=== PATIENT | female | born 1980 | race Caucasian/White ===

== ENCOUNTER 2019-07-02 18:08 | Emergency (ER) | payer SELFPAY ==
--- NOTE | 2019-07-02 18:52 | RAD REPORT ---
EXAM DESCRIPTION: RAD - Chest Single View - 07/02/2019 6:47 pm CLINICAL HISTORY: COUGH Chest pain. COMPARISON: No comparisons FINDINGS: Portable technique limits examination quality. The lungs are grossly clear. The heart is normal in size. No displaced fractures. IMPRESSION: No acute intrathoracic process suspected.
[2019-07-02] MEDS ORDERED: METOPROLOL TAR 25 MG TAB ONE (19:02)
[2019-07-02] MEDS ORDERED: NA CHLORIDE 0.9% 1,000 ML ONE (19:02)
[2019-07-02] MEDS ORDERED: ASPIRIN 81 MG CHEWABLE TABLET ONE (19:02)
[2019-07-02 19:07] LABS: Absolute Lymphocytes (CBC) 1.5 K/uL (0.7-4.9); Basophils % 0.6 % (0-1.3); Hematocrit 38.5 % (36.0-45.0); Lymphocytes % 20.6 % (15.3-44.8); MPV 11.9 fL (7.6-11.3); RBC Red Blood Cell Count 4.14 M/uL (3.86-4.86)
[2019-07-02 19:10] LABS: Protime INR 1.06
[2019-07-02 19:17] LABS: Urine Blood TRACE (NEG); Urine Glucose NEGATIVE (NEG); Urine Protein NEGATIVE (NEG); Urine Specific Gravity 1.015 (1.005-1.030)
[2019-07-02 19:27] LABS: ALT/SGPT 18 U/L (12-78); AST/SGOT 18 U/L (15-37); Albumin 4.3 g/dL (3.4-5.0); Alkaline Phosphatase 42 U/L (45-117); BUN Blood Urea Nitrogen 9 mg/dL (7-18); Bicarbonate 26 mmol/L (21-32); Bilirubin Direct 0.1 mg/dL (0-0.2); Bilirubin Total 0.3 mg/dL (0.2-1.0); Glucose Level 78 mg/dL (74-106); Magnesium 2.1 mg/dL (1.8-2.4); NT PRO-BNP 254 pg/mL (<125); Potassium 3.5 mmol/L (3.5-5.1); Protein, Total 7.2 g/dL (6.4-8.2); Sodium Level 144 mmol/L (136-145); Thyroid Stimulating Hormone 0.752 uIU/mL (0.360-3.740); Troponin (Emerg Dept Use Only) 0.03 ng/mL (0.0-0.045)
[2019-07-02 19:28] LABS: Barbiturates NEGATIVE (NEGATIVE); Benzodiazepines NEGATIVE (NEGATIVE); Cocaine NEGATIVE (NEGATIVE); METHAMPHETAM NEGATIVE (NEGATIVE); Methadone NEGATIVE (NEGATIVE); Opiates NEGATIVE (NEGATIVE); Phencyclidine NEGATIVE (NEGATIVE); THC Cannibis POSITIVE (NEGATIVE)
--- NOTE | 2019-07-02 19:43 | ER ---
Nurse's Notes [facility] Name: Sabina Cole Age: 39 yrs Sex: Female : 1980 Arrival Date: 07/02/2019 Time: 18:17 Bed 3 Private MD: Diagnosis: Chest pain, unspecified;Supraventricular tachycardia;Tobacco abuse counseling;Tobacco use;Abuse of non-psychoactive substances-pot Presentation: 07/01 18:17 Chief complaint: EMS states: CHEST PAIN, SVT ON MONITOR. Coronavirus screen: Proceed bp with normal triage. Ebola Screen: No symptoms or risks identified at this time. Initial Sepsis Screen: Does the patient meet any 2 criteria? HR > 90 bpm. No. Patient's initial sepsis screen is negative. Does the patient have a suspected source of infection? No. Patient's initial sepsis screen is negative. Risk Assessment: Do you want to hurt yourself or someone else? Patient reports no desire to harm self or others. Onset of symptoms is unknown. Care prior to arrival: IV initiated. 20 GA, in the right hand, Glucose check: 108. 18:17 Method Of Arrival: EMS: [facility] bp 18:17 Acuity: HELENA 2 bp Triage Assessment: 18:21 General: Appears in no apparent distress. comfortable, slender, Behavior is bp cooperative, appropriate for age, anxious. Pain: Denies pain. EENT: No deficits noted. Neuro: No deficits noted. Cardiovascular: Rhythm is sinus tachycardia. Respiratory: No deficits noted. GI: No signs and/or symptoms were reported involving the gastrointestinal system. : No signs and/or symptoms were reported regarding the genitourinary system. Derm: No deficits noted. Musculoskeletal: No deficits noted. 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 - Social history:: Smoking status: unknown. - Family history:: not pertinent. Screenin:22 Abuse screen: Denies threats or abuse. Denies injuries from another. Nutritional bp screening: No deficits noted. Tuberculosis screening: No symptoms or risk factors identified. Fall Risk None identified. Assessment: 18:22 General: SEE TRIAGE NOTE. bp 19:00 Reassessment: SR ON MONITOR, IVF INFUSING. bp 19:10 General: Appears in no apparent distress. comfortable, Behavior is calm, cooperative, rr5 appropriate for age, awaiting for review. Pain: Denies pain. Neuro: Level of Consciousness is awake, alert, obeys commands, Oriented to person, place, time, situation, Appropriate for age. Cardiovascular: Capillary refill < 3 seconds Patient's skin is warm and dry. Rhythm is sinus rhythm. Respiratory: Airway is patent Respiratory effort is even, unlabored, Respiratory pattern is regular, symmetrical. GI: No signs and/or symptoms were reported involving the gastrointestinal system. : No signs and/or symptoms were reported regarding the genitourinary system. EENT: No signs and/or symptoms were reported regarding the EENT system. Derm: Skin is intact, is healthy with good turgor, Skin temperature is warm. Musculoskeletal: Circulation, motion, and sensation intact. Capillary refill < 3 seconds. 19:45 Reassessment: Patient appears in no apparent distress at this time. Patient is alert, rr5 oriented x 3, equal unlabored respirations, skin warm/dry/pink. call made to patients "Joshua" [phone], [phone] to arrange transport going home. 20:50 Reassessment: Patient appears in no apparent distress at this time. call made to [address] [facility] and [facility] by public relations counselor requesting for the ECG strip. they could not track the number of the EMS staff who attended,because they used the personal number. 21:14 Reassessment: Patient appears in no apparent distress at this time. Patient is alert, rr5 oriented x 3, equal unlabored respirations, skin warm/dry/pink. discharge instruction given and explained without complaints made. assisted going to her transport. Vital Signs: 18:17 BP 121 / 85; Pulse 113; Resp 20; Temp 97.3; Pulse Ox 98% ; Weight 49.9 kg; Height 5 ft. bp 2 in. (157.48 cm); 19:00 BP 111 / 82; Pulse 96; Resp 17; Pulse Ox 100% ; bp 20:00 BP 115 / 70; Pulse 90; Resp 16; Temp 97.8; Pulse Ox 99% ; rr5 21:00 BP 119 / 62; Pulse 93; Resp 18; Pulse Ox 98% ; rr5 18:17 Body Mass Index 20.12 (49.90 kg, 157.48 cm) bp ED Course: 18:17 Patient arrived in ED. bp 18:17 Candido France MD is Attending Physician. amy 18:19 Triage completed. bp 18:21 Arm band placed on. bp 18:22 Patient has correct armband on for positive identification. Bed in low position. Call bp light in reach. Side rails up X2. railroad construction director on. Pulse ox on. NIBP on. 18:23 Maintain EMS IV. Dressing intact. Good blood return noted. Site clean \\T\\ dry. Gauge \\T\\ bp site: 20 GAUGE R HAND. 18:24 Alfonso More, ANDREA is Primary Nurse. bp 18:30 Urine collected: clean catch specimen, clear. dh3 18:40 Initial lab(s) drawn, by nc, sent to lab. Inserted saline lock: 22 gauge in right 3 antecubital area, using aseptic technique. Blood collected. 18:47 EKG done, by ED staff, reviewed by Candido France MD. 3 18:48 XRAY Chest (1 view) In Process Unspecified. EDMS 19:43 Octavio Miller MD is Referral Physician. amy 21:15 No provider procedures requiring assistance completed. IV discontinued, intact, rr5 bleeding controlled, No redness/swelling at site. Pressure dressing applied. 21:15 Patient maintains SpO2 saturation greater than 95% on room air. rr5 Administered Medications: 18:30 Drug: Lopressor 25 mg Route: PO; bp 19:30 Follow up: Response: No adverse reaction rr5 18:30 Drug: NS 0.9% 1000 ml Route: IV; Rate: 1 bolus; Site: right antecubital; bp 19:30 Follow up: Response: No adverse reaction; IV Status: Completed infusion; IV Intake: rr5 1000ml 19:00 Drug: Aspirin 162 mg Route: PO; bp 20:00 Follow up: Response: No adverse reaction rr5 Intake: 19:30 IV: 1000ml; Total: 1000ml. rr5 Outcome: 19:43 Discharge ordered by . amy 21:15 Discharged to home ambulatory. rr5 21:15 Condition: stable 21:15 Discharge instructions given to patient, Instructed on discharge instructions, follow up and referral plans. medication usage, Demonstrated understanding of instructions, follow-up care, medications, Prescriptions given X 1. 21:16 Patient left the ED. rr5 Signatures: Dispatcher [employer] EDRI Candido France MD MD cha Herrera, Jania [facility] Alfonso More, RN RN Cornelius Beach RN RN rr5
--- NOTE | 2019-07-02 19:43 | EDPHYS ---
Physician Documentation [facility] Name: Sabina Cole Age: 39 yrs Sex: Female : 1980 Arrival Date: 07/02/2019 Time: 18:17 Bed 3 Private MD: ED Physician Candido France HPI: 07/01 18:37 This 39 yrs old Female presents to ER via EMS with complaints of Chest Pain. amy 18:37 The patient or guardian reports chest pain that is located primarily in the anterior [facility] chest wall. The pain does not radiate. 18:38 The patient presents with a history of heart racing. Context: The symptoms occur with [facility] exercise. Onset: The symptoms/episode began/occurred just prior to arrival. Duration: The patient or guardian reports a single episode, that is now resolved. Modifying factors: The symptoms are aggravated by nothing. The symptoms are alleviated by nothing. Associated signs and symptoms: Pertinent positives: chest pain, lightheadedness, SOB. 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 - Social history:: Smoking status: unknown. - Family history:: not pertinent. ROS: 18:38 Constitutional: Negative for fever, chills, and weight loss, Eyes: Negative for injury, amy pain, redness, and discharge, ENT: Negative for injury, pain, and discharge, Neck: Negative for injury, pain, and swelling, Respiratory: Negative for shortness of breath, cough, wheezing, and pleuritic chest pain, Abdomen/GI: Negative for abdominal pain, nausea, vomiting, diarrhea, and constipation, Back: Negative for injury and pain, : Negative for injury, bleeding, discharge, and swelling, MS/Extremity: Negative for injury and deformity, Skin: Negative for injury, rash, and discoloration, Neuro: Negative for headache, weakness, numbness, tingling, and seizure, Psych: Negative for depression, anxiety, suicide ideation, homicidal ideation, and hallucinations, Allergy/Immunology: Negative for hives, rash, and allergies, Endocrine: Negative for neck swelling, polydipsia, polyuria, polyphagia, and marked weight changes, Hematologic/Lymphatic: Negative for swollen nodes, abnormal bleeding, and unusual bruising. 18:38 Cardiovascular: Positive for chest pain, palpitations. Exam: 18:38 Constitutional: This is a well developed, well nourished patient who is awake, alert, amy and in no acute distress. Head/Face: Normocephalic, atraumatic. Eyes: Pupils equal round and reactive to light, extra-ocular motions intact. Lids and lashes normal. Conjunctiva and sclera are non-icteric and not injected. Cornea within normal limits. Periorbital areas with no swelling, redness, or edema. ENT: Nares patent. No nasal discharge, no septal abnormalities noted. Tympanic membranes are normal and external auditory canals are clear. Oropharynx with no redness, swelling, or masses, exudates, or evidence of obstruction, uvula midline. Mucous membranes moist. Neck: Trachea midline, no thyromegaly or masses palpated, and no cervical lymphadenopathy. Supple, full range of motion without nuchal rigidity, or vertebral point tenderness. No Meningismus. Chest/axilla: Normal chest wall appearance and motion. Nontender with no deformity. No lesions are appreciated. Respiratory: Lungs have equal breath sounds bilaterally, clear to auscultation and percussion. No rales, rhonchi or wheezes noted. No increased work of breathing, no retractions or nasal flaring. Abdomen/GI: Soft, non-tender, with normal bowel sounds. No distension or tympany. No guarding or rebound. No evidence of tenderness throughout. Back: No spinal tenderness. No costovertebral tenderness. Full range of motion. Skin: Warm, dry with normal turgor. Normal color with no rashes, no lesions, and no evidence of cellulitis. MS/ Extremity: Pulses equal, no cyanosis. Neurovascular intact. Full, normal range of motion. Neuro: Awake and alert, GCS 15, oriented to person, place, time, and situation. Cranial nerves II-XII grossly intact. Motor strength 5/5 in all extremities. Sensory grossly intact. Cerebellar exam normal. Normal gait. Psych: Awake, alert, with orientation to person, place and time. Behavior, mood, and affect are within normal limits. 18:38 Cardiovascular: Rate: tachycardic, Rhythm: regular, Pulses: Pulses are 4+ in bilateral radial, brachial, femoral, popliteal, posterior tibial and and dorsalis pedis arteries.. Heart sounds: normal, Edema: is not appreciated, JVD: is not appreciated. 18:38 Musculoskeletal/extremity: DVT Exam: No signs of deep vein thrombosis. no pain, no swelling, no tenderness, negative Homans' sign noted on exam, no appreciated bluish discoloration, no erythema, no increased warmth. 18:53 ECG was reviewed by the Attending Physician. amy Vital Signs: 18:17 BP 121 / 85; Pulse 113; Resp 20; Temp 97.3; Pulse Ox 98% ; Weight 49.9 kg; Height 5 ft. bp 2 in. (157.48 cm); 19:00 BP 111 / 82; Pulse 96; Resp 17; Pulse Ox 100% ; bp 20:00 BP 115 / 70; Pulse 90; Resp 16; Temp 97.8; Pulse Ox 99% ; rr5 21:00 BP 119 / 62; Pulse 93; Resp 18; Pulse Ox 98% ; rr5 18:17 Body Mass Index 20.12 (49.90 kg, 157.48 cm) bp MDM: 18:19 Patient medically screened. amy 18:39 Differential diagnosis: abnormal EKG, anxiety, coronary artery disease congestive heart amy failure arrythmia, dehydration, hiatal hernia, mitral valve prolapse, pericarditis, pleurisy, pneumothorax, stable angina. Data reviewed: vital signs, nurses notes, EMS record, lab test result(s), EKG, radiologic studies, plain films. 19:05 HEART Score: History: Slightly Suspicious (0), ECG: Normal (0), Age: < or = 45 years amy (0), Risk Factors: No Risk Factors Known (0). The patient's deep vein thrombosis risk score was calculated as follows: Total Score: 0. This patient was found to be at low risk for a deep vein thrombosis by using the Well's assessment criteria. The patient's pulmonary embolism risk score was calculated as follows: Total Score: 0-2 points. This patient was found to be at low risk for a pulmonary embolism by using the Well's assessment criteria. ANKITA Risk Score: TOTAL SCORE = 0. Data interpreted: monitoring coordinator: rate is 113 beats/min, Pulse oximetry: on room air is 98 %. Test interpretation: by ED physician or midlevel provider: ECG, plain radiologic studies. ED course: pt stable, will stop vaping and no caffeine and no energy drinks. ED course: will follow up dr miller. 07/01 18:18 Order name: Basic Metabolic Panel; Complete Time: 19:37 [facility] 07/01 18:18 Order name: CBC with Diff; Complete Time: 19:42 [facility] 07/01 18:18 Order name: LFT's; Complete Time: 19:37 [facility] 07/01 18:18 Order name: Magnesium; Complete Time: 19:37 [facility] 07/01 18:18 Order name: NT PRO-BNP; Complete Time: 19:37 [facility] 07/01 18:18 Order name: Troponin (emerg Dept Use Only); Complete Time: 19:37 [facility] 07/01 18:18 Order name: TSH; Complete Time: 19:37 [facility] 07/01 18:18 Order name: Acetaminophen; Complete Time: 19:37 [facility] 07/01 18:18 Order name: ETOH Level; Complete Time: 19:37 [facility] 07/01 18:18 Order name: PT-INR; Complete Time: 19:41 [facility] 07/01 18:18 Order name: Ptt, Activated; Complete Time: 19:41 [facility] 07/01 18:19 Order name: Salicylate; Complete Time: 19:37 [facility] 07/01 18:19 Order name: Urine Drug Screen; Complete Time: 19:37 [facility] 07/01 18:54 Order name: Urine Dipstick--Ancillary (enter results); Complete Time: 19:19 [facility] 07/01 18:18 Order name: XRAY Chest (1 view); Complete Time: 19:05 [facility] 07/01 18:18 Order name: EKG; Complete Time: 18:20 [facility] 07/01 18:18 Order name: Cardiac monitoring; Complete Time: 18:20 [facility] 07/01 18:18 Order name: EKG - Nurse/Tech; Complete Time: 18:20 [facility] 07/01 18:18 Order name: IV Saline Lock; Complete Time: 18:20 [facility] 07/01 18:18 Order name: Labs collected and sent; Complete Time: 18:56 [facility] 07/01 18:18 Order name: O2 Per Protocol; Complete Time: 18:20 [facility] 07/01 18:18 Order name: O2 Sat Monitoring; Complete Time: 18:20 [facility] 07/01 18:19 Order name: Urine Dipstick-Ancillary (obtain specimen); Complete Time: 18:56 amy EC:53 Rate is 104 beats/min. Rhythm is regular. QRS Two Dot is Normal. CT interval is normal. [facility] QRS interval is normal. QT interval is normal. No Q waves. T waves are Normal. No ST changes noted. Clinical impression: NSR w/ Non-specific ST/T Changes and Sinus tachycardia. Interpreted by me. Reviewed by me. Administered Medications: 18:30 Drug: Lopressor 25 mg Route: PO; bp 19:30 Follow up: Response: No adverse reaction rr5 18:30 Drug: NS 0.9% 1000 ml Route: IV; Rate: 1 bolus; Site: right antecubital; bp 19:30 Follow up: Response: No adverse reaction; IV Status: Completed infusion; IV Intake: rr5 1000ml 19:00 Drug: Aspirin 162 mg Route: PO; bp 20:00 Follow up: Response: No adverse reaction rr5 Disposition: 07/02/19 19:43 Discharged to Home. Impression: Chest pain, unspecified, Supraventricular tachycardia, Tobacco abuse counseling, Tobacco use, Abuse of non-psychoactive substances - pot. - Condition is Stable. - Discharge Instructions: Nonspecific Chest Pain, Substance Use Disorder, Steps to Quit Smoking, Smoking Hazards, Paroxysmal Supraventricular Tachycardia, Nonspecific Chest Pain, [id number], Steps to Quit Smoking, [id number], Aspirin and Your Heart. - Prescriptions for Toprol XL 25 mg Oral Tablet - take 1 tablet by ORAL route once daily; 20 tablet. - Medication Reconciliation Form, Thank You Letter, Antibiotic Education, Prescription Opioid Use form. - Follow up: Private Physician; When: 2 - 3 days; Reason: Recheck today's complaints, Continuance of care, Re-evaluation by your physician. Follow up: Octavio Miller; When: 2 - 3 days; Reason: Recheck today's complaints, Re-evaluation by your physician. - Problem is new. - Symptoms have improved. Signatures: Dispatcher [employer] Candido Ayon MD MD cha Peltier, Brian, RN RN bp Cornelius Cash, RN RN rr5 Corrections: (The following items were deleted from the chart) 21:16 19:43 07/02/2019 19:43 Discharged to Home. Impression: Chest pain, unspecified; rr5 Supraventricular tachycardia; Tobacco abuse counseling; Tobacco use; Abuse of non-psychoactive substances - pot. Condition is Stable. Discharge Instructions: Nonspecific Chest Pain, Paroxysmal Supraventricular Tachycardia, Nonspecific Chest Pain, [id number], Aspirin and Your Heart, Steps to Quit Smoking, Smoking Hazards, Steps to Quit Smoking, [id number]. Prescriptions for Toprol XL 25 mg Oral Tablet - take 1 tablet by ORAL route once daily; 20 tablet. and Forms are Medication Reconciliation Form, Thank You Letter, Antibiotic Education, Prescription Opioid Use. Follow up: Private Physician; When: 2 - 3 days; Reason: Recheck today's complaints, Continuance of care, Re-evaluation by your physician. Follow up: Octavio Miller; When: 2 - 3 days; Reason: Recheck today's complaints, Re-evaluation by your physician. Problem is new. Symptoms have improved. amy
[2019-07-02] MEDS ORDERED: ACETAMINOPHEN 650MG/RECT SUPP PR ONE (19:58)
[2019-07-02 22:48] VITALS: TEMP 97.3
[2019-07-02 22:53] VITALS: BP 111/82; O2SAT 100
--- NOTE | 2019-07-04 13:12 | EKG ---
Test Date: 2019-07-02 Test Time: 18:47:15 Night Time Nanny: D MEASUREMENT RESULTS: Intervals: Rate: 104 RI: 120 QRSD: 76 QT: 322 QTc: 423 [place]: P: 81 RI: 120 QRS: 76 T: 59 INTERPRETIVE STATEMENTS: Sinus tachycardia Otherwise normal ECG No previous ECG available for comparison Electronically Signed On 07-04-19 13:11:50 CDT by Octavio Miller
== END 2019-07-02 21:16 | disposition home or self-care (01) ==
LOC: ER 18:08
DX: I47.1 Supraventricular tachycardia (principal); F12.10 Cannabis abuse, uncomplicated; Z72.0 Tobacco use; Z71.6 Tobacco abuse counseling; Z88.5 Allergy status to narcotic agent
CPT/HCPCS: 36415; 71045; 80048; 80076; 80307; 80320; 80329; 81003; 83735; 83880; 84443; 84484; 85025; 85610; 85730; 93005; 96360; 99285; J7030

== ENCOUNTER 2019-12-27 12:36 | Emergency (ER) | payer OTHER ==
[2019-12-27] MEDS ORDERED: PROMETHAZINE 25 MG TABLET ONE (15:13)
[2019-12-27] MEDS ORDERED: TRAMADOL HCL 50 MG TAB ONE (15:13)
--- NOTE | 2019-12-27 15:45 | ER ---
Nurse's Notes [facility] Name: Sabina Cole Age: 39 yrs Sex: Female : 1980 Arrival Date: 12/27/2019 Time: 12:38 Bed 20 Private MD: Diagnosis: Nondisplaced fracture of lateral malleolus of left fibula Presentation: 12/26 13:03 Chief complaint: Patient states: Tripped and fell last night. Pain on L ankle. Lac on L ca1 ankle. Bleeding controlled. Coronavirus screen: Client denies travel out of the [place] in the last 14 days. At this time, the client does not indicate any symptoms associated with coronavirus-19. Client reports previous positive COVID test result. Date of collection: July 2019. Ebola Screen: Patient negative for fever greater than or equal to 101.5 degrees Fahrenheit, and additional compatible Ebola Virus Disease symptoms Patient denies exposure to infectious person. Patient denies travel to an Ebola-affected area in the 21 days before illness onset. No symptoms or risks identified at this time. Initial Sepsis Screen: Does the patient meet any 2 criteria? No. Patient's initial sepsis screen is negative. Does the patient have a suspected source of infection? No. Patient's initial sepsis screen is negative. Risk Assessment: Do you want to hurt yourself or someone else? Patient reports no desire to harm self or others. Onset of symptoms was December 27, 2019. 13:03 Method Of Arrival: Wheelchair ca1 13:03 Acuity: HELENA 4 ca1 Triage Assessment: 13:05 General: Appears in no apparent distress. uncomfortable, Behavior is cooperative, bp appropriate for age, anxious. Pain: Complains of pain in left lateral ankle. EENT: No deficits noted. Neuro: No deficits noted. Cardiovascular: No deficits noted. Respiratory: No deficits noted. GI: No signs and/or symptoms were reported involving the gastrointestinal system. : No signs and/or symptoms were reported regarding the genitourinary system. Derm: No deficits noted. Musculoskeletal: Reports pain in left lateral ankle. 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 - Social history:: Smoking status: Patient reports the use of cigarette tobacco products, smokes one-half pack cigarettes per day. Screenin:00 Abuse screen: Denies threats or abuse. Denies injuries from another. Nutritional bp screening: No deficits noted. Tuberculosis screening: No symptoms or risk factors identified. Fall Risk None identified. Assessment: 13:05 General: SEE TRIAGE NOTE. bp 15:01 Reassessment: Patient is alert, oriented x 3, equal unlabored respirations, skin aa5 warm/dry/pink. Awaiting x-ray. 15:33 Reassessment: Patient appears in no apparent distress at this time. Patient and/or bp family updated on plan of care and expected duration. Pain level reassessed. XRAY COMPLETE. 16:13 Reassessment: PT D/C HOME VIA CRUTCHES WITH FAMILY, DX WITH NONDISPLACED 5TH METATARSAL bp FX. Vital Signs: 13:03 BP 121 / 79; Pulse 109; Resp 18 S; Temp 99.1(TE); Pulse Ox 99% on R/A; Weight 49.9 kg ca1 (R); Height 5 ft. 2 in. (157.48 cm) (R); Pain 7/10; 15:00 BP 127 / 65; Pulse 81; Resp 10; Temp 99; Pulse Ox 99% ; bp 16:13 BP 130 / 69; Pulse 97; Resp 18; Temp 98.9; Pulse Ox 99% ; bp 13:03 Body Mass Index 20.12 (49.90 kg, 157.48 cm) ca1 ED Course: 12:38 Patient arrived in ED. ag5 13:06 Triage completed. ca1 13:07 Arm band placed on right wrist. ca1 14:42 David Sullivan NP is PHCP. pm1 14:42 Candido France MD is Attending Physician. pm1 15:00 Patient has correct armband on for positive identification. Bed in low position. Call bp light in reach. Side rails up X2. 15:03 Alfonso More, ANDREA is Primary Nurse. bp 15:12 Ankle Left 3 View XRAY In Process Unspecified. EDMS 15:45 LEFT LOWER LEG SPLINT IN PLACE AND INSPECTED BY PROVIDER. bp 16:19 No provider procedures requiring assistance completed. Patient did not have IV access bp during this emergency room visit. 16:27 Orthoglass splint: Posterior short lleg splint applied on left leg. stirrup splint bp applied on left leg. Administered Medications: 15:01 Drug: Phenergan 25 mg Route: PO; aa5 15:35 Follow up: Response: No adverse reaction bp 15:01 Drug: traMADol 50 mg Route: PO; aa5 15:35 Follow up: Response: Pain is decreased bp Outcome: 15:45 Discharge ordered by MD. pm1 16:24 Discharged to home with crutches, with family. bp 16:24 Condition: stable 16:24 Discharge instructions given to patient, Instructed on discharge instructions, follow up and referral plans. medication usage, crutch walking, Demonstrated understanding of instructions, follow-up care, medications, crutch walking, splint care, Prescriptions given X 2. 16:28 Patient left the ED. bp Signatures: Dispatcher [employer] EDMS Candi Way, RN RN aa5 David Sullivan, REAGAN LINE CONTROLLER pm1 Alfonso More RN RN bp Flor Car RN RN [facility] Ashly Singh [facility]
--- NOTE | 2019-12-27 15:45 | EDPHYS ---
Physician Documentation [facility] Name: Sabina Cole Age: 39 yrs Sex: Female : 1980 Arrival Date: 12/27/2019 Time: 12:38 Bed 20 Private MD: ANGELICA Physician Candido France HPI: 12/26 14:51 This 39 yrs old Female presents to ER via Wheelchair with complaints of Ankle pm1 Injury. 14:51 The patient presents with pain, that is acute, swelling. The complaints affect the left pm1 ankle. Onset: The symptoms/episode began/occurred last night, at 21:00. Context: The problem was sustained at home, resulted from the patient tripping, on the sliding door railing, The mechanism of injury involved inversion of the affected ankle. The patient can partially bear weight on the affected extremity. the patient is able to ambulate, with moderate difficulty. Associated signs and symptoms: Pertinent positives: swelling, Pertinent negatives: calf tenderness, fever, numbness, tingling. Associated signs and symptoms: Pertinent positives: Abrasion to lateral aspect of left ankle. Modifying factors: The symptoms are alleviated by elevation of extremity, the symptoms are aggravated by weight bearing, movement. Severity of symptoms: in the emergency department the symptoms are unchanged. The patient has not experienced similar symptoms in the past. The patient has not recently seen a physician. 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 - Social history:: Smoking status: Patient reports the use of cigarette tobacco products, smokes one-half pack cigarettes per day. ROS: 14:51 Constitutional: Negative for fever, chills, and weight loss, Neck: Negative for injury, pm1 pain, and swelling, Cardiovascular: Negative for chest pain, palpitations, and edema, Respiratory: Negative for shortness of breath, cough, wheezing, and pleuritic chest pain, Neuro: Negative for headache, weakness, numbness, tingling, and seizure. 14:51 MS/extremity: Positive for pain, swelling, tenderness, of the left lateral ankle. 14:51 Skin: Positive for abrasion(s), of the left lateral ankle. Exam: 14:51 Constitutional: This is a well developed, well nourished patient who is awake, alert, pm1 and in no acute distress. Head/Face: Normocephalic, atraumatic. Neck: Trachea midline, no thyromegaly or masses palpated, and no cervical lymphadenopathy. Supple, full range of motion without nuchal rigidity, or vertebral point tenderness. No Meningismus. 14:51 Cardiovascular: Exam negative for acute changes, Rate: normal, Rhythm: regular, Pulses: no pulse deficits are appreciated, Pulses are 2+ in right dorsalis pedis artery and left dorsalis pedis artery. 14:51 Respiratory: Exam negative for acute changes, respiratory distress, shortness of breath. 14:51 Musculoskeletal/extremity: Extremities: grossly normal except: noted in the left lateral ankle: swelling, tenderness, small superficial abrasion present, There is no evidence of deformity, ROM: full active range of motion, left ankle, full passive range of motion, in the left ankle, the left foot Sensation intact. Vital Signs: 13:03 BP 121 / 79; Pulse 109; Resp 18 S; Temp 99.1(TE); Pulse Ox 99% on R/A; Weight 49.9 kg ca1 (R); Height 5 ft. 2 in. (157.48 cm) (R); Pain 7/10; 15:00 BP 127 / 65; Pulse 81; Resp 10; Temp 99; Pulse Ox 99% ; bp 16:13 BP 130 / 69; Pulse 97; Resp 18; Temp 98.9; Pulse Ox 99% ; bp 13:03 Body Mass Index 20.12 (49.90 kg, 157.48 cm) ca1 Procedures: 16:07 Splinting: Splint applied to left ankle using Orthoglass splint, applied by tech. pm1 Examined by me, post splint application: neurovascular intact, 2+ distal pulses palpable, brisk capillary refill noted, Patient tolerated well. MDM: 14:45 Patient medically screened. [facility] 14:51 Data reviewed: vital signs. Data interpreted: Pulse oximetry: on room air is 99 %. pm1 Interpretation: normal. 15:33 Counseling: I had a detailed discussion with the patient and/or guardian regarding: the pm1 historical points, exam findings, and any diagnostic results supporting the discharge/admit diagnosis, radiology results, the need for outpatient follow up, for definitive care, a orthopedic surgeon, to return to the emergency department if symptoms worsen or persist or if there are any questions or concerns that arise at home. 12/26 13:08 Order name: Ankle Left 3 View XRAY ca1 12/26 15:34 Order name: Crutches; Complete Time: 16:08 pm1 12/26 15:34 Order name: Splint - Ankle: Posterior; Complete Time: 16:08 pm1 12/26 15:34 Order name: Splint - Ankle: Orthoglass: Stirrup; Complete Time: 16:08 pm1 Administered Medications: 15:01 Drug: Phenergan 25 mg Route: PO; aa5 15:35 Follow up: Response: No adverse reaction bp 15:01 Drug: traMADol 50 mg Route: PO; aa5 15:35 Follow up: Response: Pain is decreased bp Disposition: 12/27 07:59 Co-signature as Attending Physician, Candido France MD I agree with the assessment and amy plan of care. Disposition: 12/27/19 15:45 Discharged to Home. Impression: Nondisplaced fracture of lateral malleolus of left fibula. - Condition is Stable. - Discharge Instructions: Ankle Fracture, Cast or Splint Care, Adult, Crutch Use. - Prescriptions for Tramadol 50 mg Oral Tablet - take 1 tablet by ORAL route every 8 hours as needed; 12 tablet. promethazine 25 mg Oral Tablet - take 1 tablet by ORAL route every 6 hours As needed; 20 tablet. - Medication Reconciliation Form, Thank You Letter, Antibiotic Education, Prescription Opioid Use form. - Follow up: Emergency Department; When: As needed; Reason: Worsening of condition. Follow up: Private Physician; When: 2 - 3 days; Reason: Recheck today's complaints, Continuance of care, Re-evaluation by your physician. - Problem is new. - Symptoms have improved. Signatures: Dispatcher [employer] Candido Ayon MD MD cha Calderon, Audri RN RN aa5 David Sullivan, SORTER PRICER SORTER PRICER pm1 Alfonso More RN RN bp Flor Car RN RN ca1 Corrections: (The following items were deleted from the chart) 12/26 16:28 15:45 12/27/2019 15:45 Discharged to Home. Impression: Nondisplaced fracture of lateral bp malleolus of left fibula. Condition is Stable. Forms are Medication Reconciliation Form, Thank You Letter, Antibiotic Education, Prescription Opioid Use. Follow up: Emergency Department; When: As needed; Reason: Worsening of condition. Follow up: Private Physician; When: 2 - 3 days; Reason: Recheck today's complaints, Continuance of care, Re-evaluation by your physician. Problem is new. Symptoms have improved. pm1
--- NOTE | 2019-12-27 16:49 | RAD REPORT ---
EXAM DESCRIPTION: RAD - Ankle Left 3 View - 12/27/2019 3:12 pm CLINICAL HISTORY: fall;Pain COMPARISON: No comparisons FINDINGS: Subtle cortical disruption is seen of the distal fibula near the tibiotalar joint line. No distraction or angulation. Distal tibia is intact. Ankle mortise is normal. No joint effusion seen. No joint space narrowing. No significant soft tissue swelling. IMPRESSION: Distal left fibula fracture with no distraction or angulation.
[2019-12-27 16:51] VITALS: O2SAT 99
[2019-12-27 17:01] VITALS: BP 130/69; TEMP 98.9
== END 2019-12-27 16:28 | disposition home or self-care (01) ==
LOC: ER 12:36
PROC: 2W3MX1Z Immobilization of Left Lower Extremity using Splint (ICD-10-PCS; principal; 2019-12-27)
DX: S82.65XA Nondisplaced fracture of lateral malleolus of left fibula, initial encounter for closed fracture (principal); F17.210 Nicotine dependence, cigarettes, uncomplicated; J44.9 Chronic obstructive pulmonary disease, unspecified; F31.9 Bipolar disorder, unspecified; W01.0XXA Fall on same level from slipping, tripping and stumbling without subsequent striking against object, initial encounter; Y93.9 Activity, unspecified; Y92.009 Unspecified place in unspecified non-institutional (private) residence as the place of occurrence of the external cause; Z88.5 Allergy status to narcotic agent
CPT/HCPCS: 73610; 99284; 29505; Q0169

== ENCOUNTER 2019-12-31 15:18 | Emergency (ER) | payer OTHER ==
--- NOTE | 2019-12-31 15:35 | ER ---
Nurse's Notes [facility] Name: Sabina Cole Age: 39 yrs Sex: Female : 1980 Arrival Date: 12/31/2019 Time: 15:18 Bed Waiting Private MD: Diagnosis: Presentation: 12/30 15:29 Chief complaint: pt at registration desk and refuses to be seen in triage, pt has her iw right foot up on registration desk and is talking loudly, states "the doctor only gave me 12 tranadols and I've been taking it as prescribed and I need my prescription refilled, I had to drive here for an hour just for a refill" i advised pt that we will not refill her tramadol without first being seen by a provider. Pt states "y'all just want my money, no way am i signing in again!" pt yelling and grabbing her belongings aggressively, pt states "I hope you break your ankle, I hope you get COVID!" I advised pt that she can either leave on her own or I can have security walk her out. Pt ambulated out of ER with crutches and plastic bag with her medications. ED Course: 15:18 Patient arrived in ED. ag5 Administered Medications: No medications were administered Outcome: 15:34 Patient left the ED. iw Signatures: Carmen Ellison, RN RN Ashly De Oliveira ag5
== END 2019-12-31 15:34 | disposition left against medical advice (07) ==
LOC: ER 15:18
DX: Z53.21 Procedure and treatment not carried out due to patient leaving prior to being seen by health care provider (principal)
CPT/HCPCS: 99281

== ENCOUNTER → 2020-06-07 | Day surgery (SDC) | payer OTHER ==
--- NOTE | 2020-06-07 13:25 | RAD REPORT ---
EXAM DESCRIPTION: US - Guided FNA Non Breast - 06/07/2020 11:06 am CLINICAL HISTORY: Thyroid nodule ICD R22.1 COMPARISON: May 2020 ultrasound TECHNIQUE: Risks, benefits and alternatives of procedure explained to the patient and informed conse nt obtained. Skin and subcutaneous tissues anesthetized with lidocaine. Under sonographic guidance, five 25 gauge needle passes were obtained into the dominant nodule within the right lobe of the thyroid gland. Specimens given to pathology. Patient experienced no immediate complication IMPRESSION: Fine-needle aspiration of a dominant nodule within right lobe of thyroid gland
== END ==
LOC: FNA 10:09
PROVIDERS: ATTEND Family Medicine
PROC: 0GBH3ZX Excision of Right Thyroid Gland Lobe, Percutaneous Approach, Diagnostic (ICD-10-PCS; principal; 2020-06-07)
PROC: BG44ZZZ Ultrasonography of Thyroid Gland (ICD-10-PCS; 2020-06-07)
DX: E04.1 Nontoxic single thyroid nodule (principal); R22.1 Localized swelling, mass and lump, neck
CPT/HCPCS: 88162

== ENCOUNTER 2020-06-22 20:44 | Emergency (ER) | payer OTHER ==
--- OUTSIDE RECORDS SUMMARY | 2020-06-22 20:47 | XMS REPORT | Continuity of Care Document ---
:1980 Author Organization [facility] t Address [address] [place] [address] [address] [place] [address] Care Team Providers Name Role Phone Unavailable Unavailable Unavailable Problems This patient has no known problems. Allergies, Adverse Reactions, Alerts This patient has no known allergies or adverse reactions. Medications This patient has no known medications. Procedures This patient has no known procedures. Encounters Start End Encounter Admission Attending Care Care Encounter Source Date/Time Date/Time Type Type Clinicians Facility Department ID 2020-06-20 2020-06-20 Outpatient [facility] [id number] [facility] 00[facility]00 [facility] 2020-06-15 2020-06-15 Outpatient [facility] [id number] [facility] 2020-06-15 2020-06-15 Outpatient [facility] [id number] [facility] 2020-06-09 2020-06-09 Outpatient [facility] [id number] [facility] 2020-06-08 2020-06-08 Outpatient [facility] [id number] [facility] 2020-05-23 2020-05-23 [facility] [id number] [facility] 2020-05-12 2020-05-12 [facility] [id number] [facility] 2020-05-10 2020-05-10 [facility] [id number] [facility] 2020-03-09 2020-03-09 Out[facility] [id number] [facility] 2020-02-10 2020-02-10 [facility] [id number] [facility] 2020-01-24 2020-01-24 [facility] [id number] [facility] 2020-01-11 2020-01-11 [facility] [id number] [facility] 2020-01-11 2020-01-11 Out[facility] [id number] [facility] 2020-01-10 2020-01-10 Out[facility] [id number] [facility] 2020-01-10 2020-01-10 [facility] [id number] [facility] 2020-01-10 2020-01-10 Out[facility] [id number] [facility] 2020-01-05 2020-01-05 Outpatient [facility] [id number] [facility] Clinics Results This patient has no known results.
--- NOTE | 2020-06-22 22:11 | ER ---
Nurse's Notes [facility] Name: Sabina Cole Age: 40 yrs Sex: Female : 1980 Arrival Date: 06/22/2020 Time: 20:47 Bed 30 Private MD: Diagnosis: Otalgia, bilateral Presentation: 06/22 21:03 Chief complaint: Patient states: I was surfing one week ago and I got water in my ear. jb4 I went to the on Friday of last week with an ear infection and was put on amox/k clav and then a week later was swapped to a Z-pack since it was getting worse. Coronavirus screen: Client denies travel out of the [place] in the last 14 days. At this time, the client does not indicate any symptoms associated with coronavirus-19. Ebola Screen: No symptoms or risks identified at this time. Initial Sepsis Screen: Does the patient meet any 2 criteria? No. Patient's initial sepsis screen is negative. Does the patient have a suspected source of infection? No. Patient's initial sepsis screen is negative. Risk Assessment: Do you want to hurt yourself or someone else? Patient reports no desire to harm self or others. Onset of symptoms was June 15, 2020. Transition of care: patient was not received from another setting of care. 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 - Social history:: Smoking status: Patient reports the use of cigarette tobacco products, smokes one-half pack cigarettes per day, Patient/guardian denies using alcohol, street drugs. Screenin:45 Abuse screen: Denies threats or abuse. Nutritional screening: No deficits noted. jb4 Tuberculosis screening: No symptoms or risk factors identified. Fall Risk None identified. Assessment: 21:45 General: Appears in no apparent distress. uncomfortable, Behavior is calm, cooperative, jb4 appropriate for age. Pain: Complains of pain in right ear and left ear Pain does not radiate. Pain currently is 2 out of 10 on a pain scale. Neuro: Level of Consciousness is awake, alert, obeys commands, Oriented to person, place, time, situation. Cardiovascular: Patient's skin is warm and dry. Respiratory: Airway is patent Respiratory effort is even, unlabored, Respiratory pattern is regular, symmetrical. GI: No signs and/or symptoms were reported involving the gastrointestinal system. : No signs and/or symptoms were reported regarding the genitourinary system. EENT: Ear canal clear on left ear and right ear. Derm: Skin is intact, Skin is pink, warm \T\ dry. Musculoskeletal: Circulation, motion, and sensation intact. Range of motion: intact in all extremities. Vital Signs: 21:03 BP 129 / 82; Pulse 80; Resp 16; Temp 97.4; Pulse Ox 100% on R/A; Weight 49.9 kg (R); jb4 Height 5 ft. 2 in. (157.48 cm); Pain 2/10; 21:03 Body Mass Index 20.12 (49.90 kg, 157.48 cm) jb4 ED Course: 20:47 Patient arrived in ED. bp1 21:06 Triage completed. jb4 21:07 Arm band placed on right wrist. jb4 21:45 Patient has correct armband on for positive identification. Bed in low position. Call jb4 light in reach. Side rails up X 1. 21:46 August Love MD is Attending Physician. tw4 22:11 Angela Su MD is Referral Physician. tw4 22:27 No provider procedures requiring assistance completed. Patient did not have IV access jb4 during this emergency room visit. Administered Medications: 22:23 Drug: Ondansetron 4 mg Route: PO; jb4 22:25 Follow up: Response: Medication administered at discharge. jb4 22:23 Drug: traMADol 50 mg Route: PO; jb4 22:25 Follow up: Response: Medication administered at discharge. jb4 Outcome: 22:10 Discharge ordered by . tw4 22:27 Discharged to home ambulatory. jb4 22:27 Condition: stable 22:27 Discharge instructions given to patient, Instructed on discharge instructions, follow up and referral plans. medication usage, Demonstrated understanding of instructions, follow-up care, medications, Prescriptions given X 3. 22:28 Patient left the ED. jb4 Signatures: Frankie Hernandez RN RN jb4 August Love MD MD tw4 Aminah Mariano [facility]
--- NOTE | 2020-06-22 22:11 | EDPHYS ---
Physician Documentation [facility] Name: Sabina Cole Age: 40 yrs Sex: Female : 1980 Arrival Date: 06/22/2020 Time: 20:47 Bed 30 Private MD: ED Physician August Love HPI: 06/23 06:46 This 40 yrs old Female presents to ER via Ambulatory with complaints of Ear tw4 Pain, Nausea. 06:46 This 40 yrs old Female presents to ER via Ambulatory with complaints of Ear tw4 Pain, Nausea. 06:46 The patient presents with pain. The complaints affect the right ear and left ear. The tw4 complaints affect the . Onset: The symptoms/episode began/occurred today. Modifying factors: The symptoms are alleviated by nothing, the symptoms are aggravated by nothing. Severity of symptoms: At their worst the symptoms were moderate in the emergency department the symptoms are unchanged. The patient has not experienced similar symptoms in the past. 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 - Social history:: Smoking status: Patient reports the use of cigarette tobacco products, smokes one-half pack cigarettes per day, Patient/guardian denies using alcohol, street drugs. ROS: 06/23 06:46 Constitutional: Negative for fever, chills, and weight loss, Eyes: Negative for injury, tw4 pain, redness, and discharge. Cardiovascular: Negative for chest pain, palpitations, and edema, Respiratory: Negative for shortness of breath, cough, wheezing, and pleuritic chest pain, Abdomen/GI: Negative for abdominal pain, nausea, vomiting, diarrhea, and constipation, Back: Negative for injury and pain, MS/Extremity: Negative for injury and deformity, Skin: Negative for injury, rash, and discoloration, Neuro: Negative for headache, weakness, numbness, tingling, and seizure. ENT: Positive for ear pain. Exam: 06:46 Constitutional: This is a well developed, well nourished patient who is awake, alert, tw4 and in no acute distress. Head/Face: Normocephalic, atraumatic. ENT: Nares patent. No nasal discharge, no septal abnormalities noted. Tympanic membranes are normal and external auditory canals are clear. Oropharynx with no redness, swelling, or masses, exudates, or evidence of obstruction, uvula midline. Mucous membranes moist. Chest/axilla: Normal chest wall appearance and motion. Nontender with no deformity. No lesions are appreciated. Cardiovascular: Regular rate and rhythm with a normal S1 and S2. No gallops, murmurs, or rubs. Normal PMI, no JVD. No pulse deficits. Vital Signs: 06/22 21:03 BP 129 / 82; Pulse 80; Resp 16; Temp 97.4; Pulse Ox 100% on R/A; Weight 49.9 kg (R); jb4 Height 5 ft. 2 in. (157.48 cm); Pain 2/10; 21:03 Body Mass Index 20.12 (49.90 kg, 157.48 cm) jb4 MDM: 21:46 Patient medically screened. tw4 06/23 06:46 Differential diagnosis: otitis media, otitis externa. Data reviewed: vital signs, tw4 nurses notes. Data interpreted: Pulse oximetry:. Counseling: I had a detailed discussion with the patient and/or guardian regarding: the historical points, exam findings, and any diagnostic results supporting the discharge/admit diagnosis. Special discussion: I discussed with the patient/guardian in detail that at this point there is no indication for admission to the hospital. It is understood, however, that if the symptoms persist or worsen the patient needs to return immediately for re-evaluation. Administered Medications: 06/22 22:23 Drug: Ondansetron 4 mg Route: PO; jb4 22:25 Follow up: Response: Medication administered at discharge. jb4 22:23 Drug: traMADol 50 mg Route: PO; jb4 22:25 Follow up: Response: Medication administered at discharge. jb4 Disposition: 06/22/20 22:10 Discharged to Home. Impression: Otalgia, bilateral. - Condition is Stable. - Discharge Instructions: Earache, Adult. - Prescriptions for Sowmya- D 12 Hour 60-120 mg Oral Tablet Sustained Release 12 hr - take 1 tablet by ORAL route every 12 hours As needed; 30 tablet. Zofran 4 mg Oral Tablet - take 1 tablet by ORAL route every 12 hours As needed; 6 tablet. Tramadol 50 mg Oral Tablet - take 1 tablet by ORAL route every 8 hours as needed; 12 tablet. - Medication Reconciliation Form, Thank You Letter, Antibiotic Education, Prescription Opioid Use form. - Follow up: Private Physician; When: Upon discharge from the Emergency Department; Reason: Recheck today's complaints, Continuance of care, Re-evaluation by your physician. Follow up: Angela Su MD; When: Upon discharge from the Emergency Department; Reason: Recheck today's complaints, Continuance of care, Re-evaluation by your physician. - Problem is new. - Symptoms have improved. Signatures: Frankie Hernandez RN RN jb4 August Love MD MD tw4 Corrections: (The following items were deleted from the chart) 22:11 22:10 06/22/2020 22:10 Discharged to Home. Impression: Otalgia, bilateral. Condition is tw4 Stable. Forms are Medication Reconciliation Form, Thank You Letter, Antibiotic Education, Prescription Opioid Use. Follow up: Private Physician; When: Upon discharge from the Emergency Department; Reason: Recheck today's complaints, Continuance of care, Re-evaluation by your physician. Problem is new. Symptoms have improved. tw4 22:28 22:11 06/22/2020 22:10 Discharged to Home. Impression: Otalgia, bilateral. Condition is jb4 Stable. Discharge Instructions: Earache, Adult. Forms are Medication Reconciliation Form, Thank You Letter, Antibiotic Education, Prescription Opioid Use. Follow up: Private Physician; When: Upon discharge from the Emergency Department; Reason: Recheck today's complaints, Continuance of care, Re-evaluation by your physician. Follow up: Angela Su; When: Upon discharge from the Emergency Department; Reason: Recheck today's complaints, Continuance of care, Re-evaluation by your physician. Problem is new. Symptoms have improved. tw4
[2020-06-22] MEDS ORDERED: TRAMADOL HCL 50 MG TAB ONE (22:39)
[2020-06-22] MEDS ORDERED: ONDANSETRON 4 MG (ODT) TAB ONE (22:39)
[2020-06-22 22:41] VITALS: BP 129/82; TEMP 97.4; O2SAT 100
== END 2020-06-22 22:28 | disposition home or self-care (01) ==
LOC: ER 20:44
DX: H92.03 Otalgia, bilateral (principal); F17.210 Nicotine dependence, cigarettes, uncomplicated; F31.9 Bipolar disorder, unspecified; J44.9 Chronic obstructive pulmonary disease, unspecified; I10 Essential (primary) hypertension
CPT/HCPCS: 99283

== ENCOUNTER 2020-11-13 14:27 | Emergency (ER) | payer OTHER ==
--- OUTSIDE RECORDS SUMMARY | 2020-11-13 14:32 | XMS REPORT | Continuity of Care Document ---
:1980 Author Organization [facility] t Address [address] [place] [address] Care Team Providers Name Role Phone HEMATPOUR Attending Clinician Unavailable Hematpour Attending Clinician VISIT, [facility] Attending Clinician Unavailable Ann ASHBY Attending Clinician Unavailable Hematpour Admitting Clinician Payers Payer Name Policy Type Policy Number Effective Date Expiration Date S ourbg [employer] [id number] 2020 00:00:00 Problems Condition Condition Condition Status Onset Resolution Last Treating Co mments Source Name Details Category Date Date Treatment Clinician Date CCL/ EPS Diagnosis Active 2020-08-23 M emoria SVT 08-07 07:36:00 l ABLATION CCL/ EPS 00:00: Herm chari W/ HELENA SVT 00 ABLATION W/ HELENA Active 08/07/2020 [facility] Allergies, Adverse Reactions, Alerts Allergy Allergy Status Severity Reaction(s) Onset Inactive Treating Comm ents Source Name Type Date Date Clinician codeine codeine Active Mumtaz Alfred Social History Smoking Status Start Date Stop Date Source Social History 2020-08-18 11:27:01 [facility] Medications Ordered Filled Start Stop Current Ordering Indication Dosage Frequency Signature Comments Components Source Medication Medication Date Date Medication? Clinician (SIG) Name Name Colchicine Yes 0.6 mg = 1 M emoria 0.6 MG Oral 6-19 tab, PO, l Tablet 15:34: Daily, # Tima 00 14 tab, 0 Refill(s) naproxen Yes 500 mg = 1 Mem oria 500 mg oral 6-19 tab, PO, l enteric 15:34: BID, X 30 [place] nn coated 00 day, # 60 delayed-rel tab, 0 ease tablet Refill(s) lidocaine No Notes: Memori a 2% 6-19 (Same as: l 15:06: Xylocaine) [place] 00 lidocaine No 40 mg, Memori a 2% 6-19 Route: l 14:43: INTRALESIO [place] 00 N, Drug Form: INJ, Dosing Weight 48.636, kg, ONCE, Start date: 08/19/20 9:43:00 CDT, Stop date: 08/19/20 9:43:00 CDT Solu-Medrol No 40 mg, Shai xiomy 6-19 Route: l 14:43: INTRALESIO Tima 00 N, Drug form: INJ, ONCE, Dosing Weight 48.636, kg, Start date: 08/19/20 9:43:00 CDT, Stop date: 08/19/20 9:43:00 CDT metoprolol No Notes: Memor ia extended 6-19 (Same as: l release 14:00: Toprol XL) Do Not Crush Colchicine No Notes: Memor ia 0.6 MG Oral 6-19 Hazardous l Tablet 14:00: Drug Group Blanquita nn 00 3:Reproduc tive risk Hazardous Drug -- Refer to safe handling procedure PPE Matrix Potassium No Notes: Memori a Chloride 6-19 (Same as: l 10:43: KCL) 10 Tima 00 mEq/100ml product recommende d for peripheral line administra tion. Infuse no faster than 10 mEq/hr if given peripheral ly. sodium No Notes: Memoria phosphate 6-19 Infuse l 10:43: over 4 Tima 00 hour. Do not infuse phosphorou s concurrent ly in the same line as TPN or IVF that contains calcium. For double lumen central lines, phosphorou s may be infused in a separate lumen from TPN. potassium No Notes: Memori a phosphate 6-19 (Same as: l 10:43: K [place] 00 Phosphate) Infuse over 4 hour. Do not infuse phosphorou s concurrent ly in the same line as TPN or IVF that contains calcium. For double lumen central lines, phosphorou s may be infused in a separate lumen from TPN. potassium No Notes: Memori a phosphate-s -19 (Same as: l odium 10:43: Phos-NaK) Tima phosphate 00 Each 1.5 250 mg-280 gm pkt has mg-160 mg 250mg oral powder phosphorou for s. Mix reconstitut w/2.5oz ion water and stir. Magnesium No Notes: Memori a Sulfate - WASTE: F/P l 10:43: - Sink; E - Municipal Trash Bin Magnesium No Notes: Memori a Oxide - (Same as: l 10:43: Mag-Ox Tima 400) Magnesium oxide 795mj=244j g elemental magnesium Dose=____m g magnesium oxide (___mg elemental magnesium) Calcium No Notes: Memoria Gluconate - Contains: l 10:43: calcium Tima 00 gluconate 20mg/mL NaCl 0.67% 50mL WASTE: F/P - Sink; E - Municipal Trash Bin calcium No Notes: Memoria carbonate - (Same As: l 500 mg (200 10:43: Tums) Blanquita nn mg 00 Calcium elemental Carbonate calcium) 500 mg = oral tablet 200 mg elemental calcium Dose = mg calcium carbonate ( mg elemental calcium) Saline No Notes: Memoria Flush 0.9% - (Same as: l 02:00: BD Tima Posiflush) Zofran No Notes: Memoria 6-19 (Same as: l 01:29: Zofran) Tima MEDICATION WASTE Product Size: 4 mg Product Wasted: ___ mg ketOROLAC No 4 days. Shai xiomy 15 mg/mL 08-18 l injectable 23:00: [place] solution 00 lamotrigine No Notes: Shai xiomy 100 MG Oral 6-18 (Same l Tablet 22:00: as:LaMICta Blanquita nn 00 l) 50 mg = 1/2 x 100 mg TAB Naloxone No Notes: Memoria 6-18 Same as l 19:19: Narcan Dilaudid No Notes: Memoria 6-18 Same as l 19:18: Dilaudid lidocaine Yes Notes: Memori a 1% 6-18 Preservati l preservativ 19:16: ve free. He rmann e-free 00 (Same as: injectable Xylocaine solution MPF) Dilaudid No Notes: Memoria 6-18 Same as l 18:02: Dilaudid ketOROLAC No 4 days. Shai xiomy 15 mg/mL 6-18 l injectable 17:48: [place] solution 00 Fentanyl No 50 Memoria 6-18 microgram, l 17:15: Route: IV, [place] 00 ONCE, Dosing Weight 48.636, kg, Start date: 08/18/20 12:15:00 CDT, Stop date: 08/18/20 12:15:00 CDT Versed No Route: IV, Memor ia 6-18 ONCE, l 17:14: Dosing Weight 48.636, kg, Start date: 08/18/20 12:14:00 CDT, Stop date: 08/18/20 12:14:00 CDT NS (Bolus) No 1,000 mL, Me moria IV 6-18 1,000 l 16:27: ml/hr, Infuse Over: 1 hr, Route: IV, ONCE, Priority: STAT, Dosing Weight 48.636 kg, Start date: 08/18/20 11:27:00 CDT, Stop date: 08/18/20 11:27:00 CDT protamine No Route: IV, Me moria (ANES) 6-18 Drug form: l 15:21: INJ, ONCE, Tima 00 Stop date: 08/18/20 10:21:00 CDT Saline No Notes: Memoria Flush 0.9% 6-18 (Same as: l 15:05: BD T[place] 00 Posiflush) Labetalol No 10 mg, 2 Shai xiomy 6-18 mL, Route: l 14:56: IVP, Drug form: INJ, Q5Min, Dosing Weight 48.636, kg, PRN Elevated BP, Start date: 08/18/20 9:56:00 CDT, Duration: 5 doses or times, Stop date: 08/19/20 0:00:00 CDT, 0 Acetaminoph No Notes: Max Memoria en 6-18 acetaminop l 14:56: hen 4000 Tima mg/day (4 gm/day). (Same as: Tylenol Extra Strength) Fentanyl No Notes: Memoria 6-18 (Same as: l 14:56: Sublimaze) Preservat jessica free. Flumazenil No Notes: Memor ia 6-18 (Same as: l 14:56: Romazicon) Naloxone No Notes: Memoria 6-18 Same as l 14:56: Narcan Ondansetron No Notes: Shai xiomy 6-18 (Same as: l 14:56: Zofran) MEDICATION WASTE Product Size: 4 mg Product Wasted: ___ mg propofol No Route: IV, Mem oria (ANES) 6-18 Drug form: l 14:49: INJ, ONCE, Tima Stop date: 08/18/20 9:49:00 CDT fentaNYL No Route: IV, Mem oria (ANES) 6-18 Drug form: l 14:44: INJ, ONCE, Tima Stop date: 08/18/20 9:44:00 CDT Isuprel HCl No Route: IV, Memoria (ANES) 1 mg 6-18 Drug form: l + Sodium 14:41: INJ, Tima Chloride 00 Dosing 0.9% IV Weight (ANES) 250 48.6, kg, mL Start date: 08/18/20 9:41:00 CDT, Stop date: 08/18/20 10:41:00 CDT midazolam No Route: IV, Me moria (ANES) 6-18 Drug form: l 14:34: SOLN, [place] 00 ONCE, Stop date: 08/18/20 9:34:00 CDT propofol No Route: IV, Mem oria (ANES) 10 6-18 Drug form: l mg 14:15: INJ, Start [place] 00 date: 08/18/20 9:15:00 CDT, Stop date: 08/18/20 10:15:00 CDT Sodium No Route: IV, Memor ia Chloride 6-18 Total l 0.9% IV 14:00: Volume: Tima (ANES) 1000 00 1,000, mL Start date: 08/18/20 9:00:00 CDT, Stop date: 08/18/20 10:00:00 CDT normal No 1,000 mL, Memori a saline 0.9% 18 Rate: 100 l IV 1,000 mL 11:20: ml/hr, Herm chari 00 Infuse over: 10 hr, Route: IV, Dosing Weight 48.636 kg, Total Volume: 1,000, Start date: 08/18/20 6:20:00 CDT, Duration: 30 day, Stop date: 09/17/20 6:19:00 CDT, BSA: 1.47 m2, 0 lamotrigine Yes 50 mg = Mem oria 100 MG Oral -18 0.5 tab, l Tablet 11:06: PO, BID, # Blanquita nn 00 60 tab, 0 Refill(s) metoprolol Yes 25 mg, PO, M emoria extended 6-18 Daily, 0 l release 11:06: Refill(s) Blanquita nn 00 Vital Signs Vital Name Observation Time Observation Value Comments Source Respitory Rate 2020-08-19 17:00:00 Memori al T[place] Systolic (mm Hg) 2020-08-19 17:00:00 Shai rial Tima Diastolic (mm Hg) 2020-08-19 17:00:00 Mem orial Tima Temperature Oral (F) 2020-08-19 17:00:00 97.0 F [facility] Tima Respitory Rate 2020-08-19 16:00:00 Memori al [place] Systolic (mm Hg) 2020-08-19 16:00:00 Shai rial [place] Diastolic (mm Hg) 2020-08-19 16:00:00 Mem orial Tima Respitory Rate 2020-08-19 15:00:00 Memori al [place] Systolic (mm Hg) 2020-08-19 15:00:00 Shai rial [place] Diastolic (mm Hg) 2020-08-19 15:00:00 Mem orial [place] Temperature Oral (F) 2020-08-19 13:00:00 97.8 F [facility] T[place] Temperature Oral (F) 2020-08-19 09:00:00 97.7 F [facility] [place] Height 2020-08-18 10:59:00 157.48 cm [facility] [place] Weight 2020-08-18 10:59:00 [facility] [place] BMI Calculated 2020-08-18 10:59:00 Memori al [place] Height 2020-08-15 15:31:00 157.48 cm [facility] [place] Weight 2020-08-15 15:31:00 [facility] [place] BMI Calculated 2020-08-15 15:31:00 Memori al T[place] Procedures This patient has no known procedures. Encounters Start End Encounter Admission Attending Care Care Encounter Source Date/Time Date/Time Type Type Clinicians Facility Department ID 2020-08-21 Outpatient [facility] [id number] 15:[place]:27 [facility] 2020-07-08 Outpatient [facility] [id number] [place] 04:27:04 [facility] 2020-11-01 2020-11-01 [id number] 2020-11-01 2020-11-01 [facility] [id number] [facility] 2020-10-27 2020-10-27 [facility] [id number] [facility] 2020-09-07 2020-09-07 [facility] [id number] [facility] 2020-09-01 2020-09-01 [facility] [id number] [facility] 2020-08-31 2020-08-31 Office DELFINA Downey [id number] 08:39:17 10:28:47 Visit Tae PL[facility] [id number] [facility]INIC [id number] 2020-08-18 2020-08-19 Inpatient nullFlavo [facility] [id number] Memoria 17:48:00 19:45:00 [facility] 00 [facility] 2020-08-18 2020-08-19 Outpatient Hematpour, [facility] [id number] 12:48:00 14:45:00 Khashayar 2020-08-18 2020-08-19 Outpatient Hematpour, [facility] [id number] 12:48:00 14:45:00 ashayar 2020-08-15 2020-08-16 Outpatient nullFlavo [facility] 006 [id number] Memoria 20:45:00 04:59:59 r [facility] 00 [facility] 2020-08-15 2020-08-15 Outpatient VISIT, MG [facility] [id number] 15:45:00 23:59:59 NURSE [facility] 00 2020-08-15 2020-08-15 [place] [id number] Memoria 15:45:00 15:45:00 00 [facility] 2020-08-03 2020-08-03 Office DELFINA Downey [id number] 10:16:50 11:09:22 Visit Tae PLATT [id number] CLINIC [id number] 2020-08-01 2020-08-01 Abstract DELFINA Juarez [facility] [id number] 00:00:00 00:00:00 Audra [facility] [id number] PLAZA 2 [id number] 2020-07-28 2020-07-28 Abstract DELFINA Juarez [facility] [id number] 00:00:00 00:00:00 Audra SE MED [id number] PLAZA 2 [id number] 2020-06-22 2020-06-22 [facility] [id number] [facility] 2020-06-20 2020-06-20 [facility] [id number] [facility] 2020-06-15 2020-06-15 [facility] [id number] [facility] 2020-06-15 2020-06-15 [facility] [id number] [facility] 2020-06-09 2020-06-09 [facility] [id number] [facility] 2020-06-08 2020-06-08 [facility] [id number] [facility] 2020-05-23 2020-05-23 [facility] [id number] [facility] 2020-05-12 2020-05-12 Out[facility] [id number] [facility] 2020-05-10 2020-05-10 [facility] [id number] [facility] 2020-03-09 2020-03-09 Out[facility] [id number] [facility] 2020-02-10 2020-02-10 Out[facility] [id number] [facility] 2020-01-24 2020-01-24 [facility] [id number] [facility] 2020-01-11 2020-01-11 Out[facility] [id number] [facility] 2020-01-11 2020-01-11 Out[facility] [id number] [facility] 2020-01-10 2020-01-10 Out[facility] [id number] [facility] 2020-01-10 2020-01-10 [facility] [id number] [facility] 2020-01-10 2020-01-10 [facility] [id number] [facility] 2020-01-05 2020-01-05 Out[facility] [id number] [facility] Results Test Description Test Time Test Comments Results Result Comments Source HEMATOLOGY 2020-08-19 08:05:00 Test Item Value Reference Range Interpretation Comme nts MCH (test code = MCH) 32.5 pg 27.0-31.0 [facility] JjythqqQYTGRHMZWA6921-50-77 08:05:0034.1[facility] HermannHEMATOLOGY 2020-08-19 08:05:0013.3[facility] FjvpmooDRYPTOLLWB3560-25-60 08:05:0069[facility] QthdlnvXYYUTYFXTR1431-52-94 08:05:0011.6[facility] HermannPARATHYROID PROFILE 2020-08-19 08:05:001.04[facility] HermannPARATHYROID SPHLZNY3893-93-68 08:05:00 1.05[facility] HermannCHEM TGQAF7123-85-06 08:05:19482Xhyokvxr HermannCHEM PANEL 2020-08-19 08:05:006[facility] HermannCHEM KXTFS6577-74-70 08:05:000.38[facility] HermannCHEM PVAGV7841-53-00 08:05:53687Vrywebye HermannCHEM HBPNE0963-87-34 08:05:003.8[facility] HermannCHEM GLAKJ3125-43-28 08:05:25120Ihktjlld HermannCHEM TJMBA3858-49-29 08:05:0024[facility] HermannCHEM XIPKX2084-64-28 08:05:008.8 [facility] HermannCHEM UOUTY0378-73-81 08:05:008.0[facility] HermannCHEM PANEL 2020-08-19 08:05:98506Idvepejw HermannCHEM HPUMJ8730-23-77 08:05:001.9[facility] HermannCHEM KDOOC7246-79-12 08:05:002.7[facility] ZvhnwqjAMZCJCLNIV6646-54-32 08:05:0070.3[facility] MzotsohUDJCNDRYBR7395-15-04 08:05:0020.3[facility] Tima TGWXTQCHDL4096-18-85 08:05:008.6[facility] FdzzwjzOXZUHJNHVO9197-56-32 08:05:000.3 [facility] IwbdxhvTCHINLYKPS3364-85-42 08:05:000.5[facility] HermannHEMATOLOGY 2020-08-19 08:05:003.4[facility] DeqocntPRTLKDGISZ9038-00-40 08:05:001.0[facility] OqbcokoGLYSWYLVQL5173-19-69 08:05:000.4[facility] LweaffdTWIMXNJQPP6306-15-17 08:05:004.8[facility] NvazfktEVGFITRREC9618-57-93 08:05:003.16[facility] Tima UJHEFYUWSI6558-80-53 08:05:0010.3[facility] BtscazrCVYUQZPGYY8015-85-29 08:05:00 30.1[facility] JnllyfrGNWWPJVRLT5884-93-27 08:05:0095.3[facility] HermannHEMATOLOGY 2020-08-18 14:43:00 Test Item Value Reference Range Interpretation Comments POC Activated Clotting Time (test code 351 s = POC Activated Clotting Time) [facility] UrlsswpDTWCJJKAKI6170-02-96 14:09:00 Test Item Value Reference Range Interpretation Comments POC Activated Clotting Time (test code 360 s = POC Activated Clotting Time) [facility] NklawkoUGADMRFPFI9784-31-87 13:56:00 Test Item Value Reference Range Interpretation Comments POC Activated Clotting Time (test code 210 s = POC Activated Clotting Time) [facility] CenterKztlfrmVWVHITPXAG2013-89-20 11:02:004.2[facility] HermannHEMATOLOGY 2020-08-18 11:02:003.98[facility] YgykyyoDWUQPGHPHI7644-46-40 11:02:0012.6[facility] NwbvyerRWYDRTFJCY0382-79-07 11:02:0037.7[facility] CvdaseeQDVFOTFFZW6268-02-38 11:02:0094.8[facility] RfojfrnHWXXYSNGHD8552-68-50 11:02:00 Test Item Value Reference Range Interpretation Comments MCH (test code = MCH) 31.5 pg 27.0-31.0 [facility] CenterOhbxhchDLHANAMFUZ7931-40-28 11:02:0033.3[facility] HermannHEMATOLOGY 2020-08-18 11:02:0013.3[facility] ScomqvwEXOESLSEDK5382-53-38 11:02:66118Yvloqehv FnirezvOVAMRYYRVG0245-57-74 11:02:0010.2[facility] MwpzamtWYPQNEMYGX2663-72-65 11:02:00 Test Item Value Reference Range Interpretation Comments PT (test code = PT) 13.0 s 12.0-14.7 [facility] YgqckxnOMDXAMTNYK3333-14-44 11:02:00 Test Item Value Reference Range Interpretation Comments INR (test code = INR) 0.99 1 0.85-1.17 [facility] CenterOdeqkvyOHYCRMXBDF8813-64-34 11:02:00 Test Item Value Reference Range Interpretation Comments PTT (test code = PTT) 26.6 s 22.9-35.8 [facility] CeaieziQIROYGSJOQ2137-73-92 11:02:00Normal (08/18/20 6:02 AM)[facility] OakmsujQACMLDYNKC9035-07-91 11:02:0055.2[facility] RugmcmwZSICWFBUOD0957-90-80 11:02:0034.2[facility] UfunihrLIKLTDLSRQ5754-20-47 11:02:006.2[facility] [place] ULEYIACSXE0031-14-19 11:02:003.3[facility] IaiomflPODZSBGJMA2948-56-61 11:02:001.1 [facility] FwrbvtwGBIGFAIJHQ5278-31-60 11:02:002.3[facility] HermannHEMATOLOGY 2020-08-18 11:02:001.4[facility] TmwglddVSEZWWNKKJ9104-53-96 11:02:000.3[facility] PugzqioQSNFNDGSBM4007-65-67 11:02:000.1[facility] HermannBLOOD BANK RESULTS 2020-08-18 11:02:00Negative (08/18/20 6:02 AM)[facility] HermannCHEM PANEL 2020-08-18 11:02:04453Wqfskcte HermannCHEM XORMX6403-27-01 11:02:009[facility] HermannCHEM AALBP2057-02-69 11:02:000.71[facility] HermannCHEM YXOKS4893-45-96 11:02:69832Fggvlavh HermannCHEM QBMNP0469-90-18 11:02:004.0[facility] HermannCHEM IMOVA5997-26-57 11:02:61805Xpmukttu HermannCHEM YBGJM0019-16-07 11:02:0031 [facility] HermannCHEM UYAEN5764-33-86 11:02:009.0[facility] HermannCHEM PANEL 2020-08-18 11:02:0010.0[facility] HermannCHEM PIGHK9047-40-08 11:02:04007Jercplob HermannCHEM UTLLY1941-29-73 11:02:002.1[facility] VkqtyzxYNLDJEYJXB0745-52-35 19:32:00Not Detected *NA*(08/15/20 2:32 PM)[facility] Tima
[2020-11-13 15:28] LABS: Absolute Lymphocytes (CBC) 0.3 K/uL (0.7-4.9); Basophils % 0.5 % (0-1.3); Hematocrit 38.9 % (36.0-45.0); Lymphocytes % 7.3 % (15.3-44.8); MPV 11.6 fL (7.6-11.3); RBC Red Blood Cell Count 4.17 M/uL (3.86-4.86)
[2020-11-13] MEDS ORDERED: NA CHLORIDE 0.9% 1,000 ML ONE (16:08)
[2020-11-13] MEDS ORDERED: ONDANSETRON 4 MG/2 ML VIAL ONE (16:08)
[2020-11-13 17:13] LABS: BUN Blood Urea Nitrogen 7 mg/dL (7-18); Bicarbonate 21 mmol/L (21-32); Glucose Level 70 mg/dL (74-106); Potassium 3.5 mmol/L (3.5-5.1); Sodium Level 143 mmol/L (136-145)
[2020-11-13] MEDS ORDERED: TRAMADOL HCL 50 MG TAB ONE (18:19)
[2020-11-13] MEDS ORDERED: METOCLOPRAMIDE 10 MG/2mL INJ ONE (18:21)
[2020-11-13] MEDS ORDERED: DIPHENHYDRAMINE 50 MG/ML VIAL ONE (18:22)
[2020-11-13] MEDS ORDERED: KETOROLAC 30 MG/ML INJ ONE (18:22)
--- NOTE | 2020-11-13 18:38 | EDPHYS ---
Physician Documentation [facility] Name: Sabina Cole Age: 40 yrs Sex: Female : 1980 Arrival Date: 11/13/2020 Time: 14:30 Bed 15 Private MD: ED Physician Victorino oGld HPI: 11/13 15:56 This 40 yrs old Female presents to ER via Ambulatory with complaints of kb Fever, Cough, Vomiting. 15:56 The patient or guardian reports cough, that is intermittent, described as moderate, flu kb symptoms, myalgias. Onset: The symptoms/episode began/occurred 2 week(s) ago. Severity of symptoms: At their worst the symptoms were moderate, in the emergency department the symptoms are unchanged. Modifying factors: The symptoms are alleviated by nothing, the symptoms are aggravated by nothing. Associated signs and symptoms: Pertinent positives: fever, nausea, vomiting, Pertinent negatives: chest pain, diarrhea, ear ache, rhinorrhea, sore throat. The patient has not experienced similar symptoms in the past. The patient has been recently seen by a physician: the patient's primary care provider, 2 week(s) ago. Pt reports cough, chills, bodyaches, nausea and vomiting for 2 weeks. PCP gave a z-pack at onset of symptoms with no relief. Came in today because she is no longer able to tolerate po intake. Historical: - Allergies: 14:50 Codeine; iw - Home Meds: 14:50 lamotrigine Oral [Active]; Metoprolol Tartrate Oral [Active]; iw - PMHx: 14:50 Bipolar disorder; COPD; Endometrosis; Hypertension; iw - Immunization history:: Client reports receiving the Morris \T\ Morris single-dose vaccine. - Social history:: Smoking status: Patient reports the use of cigarette tobacco products, smokes one-half pack cigarettes per day. ROS: 15:55 Cardiovascular: Negative for chest pain, palpitations, and edema. kb 15:55 Constitutional: Positive for body aches, chills, malaise. 15:55 Respiratory: Positive for cough, Negative for dyspnea on exertion, hemoptysis, kb orthopnea, pleurisy, shortness of breath, sputum production, wheezing. 15:55 Abdomen/GI: Positive for nausea and vomiting, Negative for abdominal pain, diarrhea. 15:55 All other systems are negative. Exam: 15:56 Constitutional: This is a well developed, well nourished patient who is awake, alert, kb and in no acute distress. Head/Face: Normocephalic, atraumatic. ENT: Moist Mucous membranes Respiratory: Respirations even and unlabored. No increased work of breathing, no retractions or nasal flaring. Abdomen/GI: Soft, non-tender. No distention Skin: Warm, dry with normal turgor. Normal color. MS/ Extremity: Pulses equal, no cyanosis. Neurovascular intact. Full, normal range of motion. Neuro: Awake and alert, GCS 15, oriented to person, place, time, and situation. Moves all extremities. Normal gait. Psych: Awake, alert, with orientation to person, place and time. Behavior, mood, and affect are within normal limits. Vital Signs: 14:47 BP 144 / 90; Pulse 124; Resp 18 S; Temp 99.2; Pulse Ox 100% on R/A; Weight 49.9 kg; iw Height 5 ft. 2 in. (157.48 cm); 15:30 BP 117 / 74; Pulse 105; Resp 20; Temp 97.8; Pulse Ox 100% on R/A; kh1 16:30 BP 114 / 74; Pulse 101; Resp 18; Pulse Ox 100% on R/A; kh1 17:46 BP 107 / 74; Pulse 100; Resp 16 S; Temp 97.2; Pulse Ox 100% on R/A; kh1 14:47 Body Mass Index 20.12 (49.90 kg, 157.48 cm) iw MDM: 14:38 Patient medically screened. kb 15:54 Data reviewed: vital signs, nurses notes. Data interpreted: Pulse oximetry: on room air kb is 100 %. Interpretation: normal. 18:37 Counseling: I had a detailed discussion with the patient and/or guardian regarding: the kb historical points, exam findings, and any diagnostic results supporting the discharge/admit diagnosis, lab results, radiology results, the need for outpatient follow up, a family practitioner, to return to the emergency department if symptoms worsen or persist or if there are any questions or concerns that arise at home. 18:58 Differential Diagnosis: Bronchitis Influenza Upper Respiratory Infection Pharyngitis kb Viral Syndrome. 11/13 14:47 Order name: Basic Metabolic Panel; Complete Time: 17:14 kb 11/13 14:47 Order name: CBC with Diff; Complete Time: 15:45 kb 11/13 16:12 Order name: SARS-COV-2 RT PCR; Complete Time: 16:12 EDMS 11/13 17:15 Order name: Chest Single View XRAY kb 11/13 14:47 Order name: IV Saline Lock; Complete Time: 15:41 kb 11/13 14:47 Order name: Labs collected and sent; Complete Time: 15:41 kb 11/13 14:47 Order name: Urine Dipstick-Ancillary (obtain specimen); Complete Time: 16:42 kb 11/13 15:47 Order name: Labs - recollect needed: recollect green; Complete Time: 16:46 bd 11/13 17:16 Order name: Vital Signs; Complete Time: 17:50 kb 11/13 17:16 Order name: PO challenge; Complete Time: 18:12 kb Administered Medications: 15:50 Drug: NS 0.9% 1000 ml Route: IV; Rate: 1000 ml; Site: right hand; kh1 15:50 Drug: Zofran (Ondansetron) 4 mg Route: IVP; Site: right hand; kh1 18:05 Drug: Ketorolac 15 mg Route: IVP; Site: right hand; kh1 18:05 Drug: Benadryl (diphenhydrAMINE) 12.5 mg Route: IVP; Site: right hand; kh1 18:05 Drug: Reglan (metoCLOPramide) 10 mg Route: IVP; Site: right hand; kh1 Disposition Summary: 11/13/20 18:37 Discharge Ordered Location: Home kb Condition: Stable kb Diagnosis - Nausea with vomiting, unspecified kb - Acute upper respiratory infection, unspecified kb Followup: kb - With: Emergency Department - When: As needed - Reason: Worsening of condition Followup: kb - With: Private Physician - When: 2 - 3 days - Reason: Recheck today's complaints, Continuance of care, Re-evaluation by your physician Discharge Instructions: - Discharge Summary Sheet kb - Nausea and Vomiting, Adult, [id number] kb - Upper Respiratory Infection, Adult, [id number] kb Forms: - Medication Reconciliation Form kb - Thank You Letter kb - Antibiotic Education kb - Prescription Opioid Use kb Prescriptions: - Zofran 4 mg Oral Tablet - take 1 tablet by ORAL route every 6 hours As needed; 20 tablet; Refills: 0, kb Product Selection Permitted Addendum: 11/15/2020 07:02 Co-signature as Attending Physician, Victorino Gold MD. r n 07:05 I agree with the assessment and plan of care. Attestation: The patient's history, exam r n findings, diagnostics, and a summary of any interventions or procedures was reviewed in detail with Fiorella DOMINGO. Signatures: Dispatcher [employer] [facility] Fiorella Tyler FNP-C FNP-Priyanka Fulton Irene, RN Victorino Vital MD MD rn Harris, Kecia [facility] Corrections: (The following items were deleted from the chart) 11/13 15:12 14:47 CORONAVIRUS+.CRESENCIOZ ordered. [facility] 15:55 15:55 Constitutional: Positive for body aches, kb kb
--- NOTE | 2020-11-13 18:38 | ER ---
Nurse's Notes [facility] Name: Sabina Cole Age: 40 yrs Sex: Female : 1980 Arrival Date: 11/13/2020 Time: 14:30 Bed 15 Private MD: Diagnosis: Nausea with vomiting, unspecified;Acute upper respiratory infection, unspecified Presentation: 11/13 14:47 Chief complaint: Patient states: cough, chills, nausea since Oct 29, wasCOVID neg on iw Nov 01, now the cough is worse, vomiting, urine is dark. Coronavirus screen: Client presents with at least one sign or symptom that may indicate coronavirus-19. Ebola Screen: Patient negative for fever greater than or equal to 101.5 degrees Fahrenheit, and additional compatible Ebola Virus Disease symptoms Patient denies exposure to infectious person. Patient denies travel to an Ebola-affected area in the 21 days before illness onset. No symptoms or risks identified at this time. Initial Sepsis Screen: Does the patient meet any 2 criteria? No. Patient's initial sepsis screen is negative. Does the patient have a suspected source of infection? No. Patient's initial sepsis screen is negative. Risk Assessment: Do you want to hurt yourself or someone else? Patient reports no desire to harm self or others. Onset of symptoms was October 29, 2020. 14:47 Method Of Arrival: Ambulatory iw 14:47 Acuity: HELENA 3 iw Triage Assessment: 17:49 General: Appears in no apparent distress. comfortable, well groomed. 1 Historical: - Allergies: 14:50 Codeine; iw - Home Meds: 14:50 lamotrigine Oral [Active]; Metoprolol Tartrate Oral [Active]; iw - PMHx: 14:50 Bipolar disorder; COPD; Endometrosis; Hypertension; iw - Immunization history:: Client reports receiving the Morris \T\ Morris single-dose vaccine. - Social history:: Smoking status: Patient reports the use of cigarette tobacco products, smokes one-half pack cigarettes per day. Screenin:48 Abuse screen: Denies threats or abuse. Nutritional screening: No deficits noted. kh1 Tuberculosis screening: No symptoms or risk factors identified. Fall Risk IV access (20 points). Assessment: 17:47 Pain: Complains of pain in general body pain Pain does not radiate. Pain currently is 6 kh1 out of 10 on a pain scale. GI: Reports diarrhea, nausea, vomiting. 18:13 Reassessment: p drinking elle damian and water no acute distress noted. kh1 Vital Signs: 14:47 BP 144 / 90; Pulse 124; Resp 18 S; Temp 99.2; Pulse Ox 100% on R/A; Weight 49.9 kg; iw Height 5 ft. 2 in. (157.48 cm); 15:30 BP 117 / 74; Pulse 105; Resp 20; Temp 97.8; Pulse Ox 100% on R/A; kh1 16:30 BP 114 / 74; Pulse 101; Resp 18; Pulse Ox 100% on R/A; kh1 17:46 BP 107 / 74; Pulse 100; Resp 16 S; Temp 97.2; Pulse Ox 100% on R/A; kh1 14:47 Body Mass Index 20.12 (49.90 kg, 157.48 cm) iw ED Course: 14:30 Patient arrived in ED. as 14:31 Fiorella Tyler FNP-C is PHCP. kb 14:31 Victorino Gold MD is Attending Physician. kb 14:50 Triage completed. iw 14:52 Arm band placed on. iw 15:23 Mavis Green is Primary Nurse. kh1 15:41 Basic Metabolic Panel Sent. kh1 17:49 Patient has correct armband on for positive identification. Bed in low position. Call critical access hospital light in reach. Side rails up X 1. Adult w/ patient. 17:49 No provider procedures requiring assistance completed. Inserted saline lock: 20 gauge kh1 in right hand, using aseptic technique. Blood collected. 18:02 Chest Single View XRAY In Process Unspecified. EDMS Administered Medications: 15:50 Drug: NS 0.9% 1000 ml Route: IV; Rate: 1000 ml; Site: right hand; kh1 15:50 Drug: Zofran (Ondansetron) 4 mg Route: IVP; Site: right hand; kh1 18:05 Drug: Ketorolac 15 mg Route: IVP; Site: right hand; kh1 18:05 Drug: Benadryl (diphenhydrAMINE) 12.5 mg Route: IVP; Site: right hand; kh1 18:05 Drug: Reglan (metoCLOPramide) 10 mg Route: IVP; Site: right hand; critical access hospital Outcome: 18:37 Discharge ordered by MD. chakraborty 18:50 Patient left the ED. 1 Signatures: Dispatcher [employer] Fiorella Florence FNP-C FNP-Eloisa Collins Irene, RN RN Mavis Leung critical [facility] Corrections: (The following items were deleted from the chart) 17:46 17:30 BP 114 / 74; Pulse 101bpm; Resp 18bpm; Pulse Ox 100%; kh1 1
[2020-11-13 18:58] VITALS: O2SAT 100
--- NOTE | 2020-11-13 19:02 | RAD REPORT ---
EXAM DESCRIPTION: RAD - Chest Single View - 11/13/2020 6:01 pm CLINICAL HISTORY: COUGH COMPARISON: July 2019 TECHNIQUE: AP portable chest image was obtained 11/13/2020 6:01 pm . FINDINGS: Lungs are clear. Heart and vasculature are normal. No measurable pleural effusion and no p neumothorax. No acute bony abnormality seen. No acute aortic findings suspected. IMPRESSION: No acute cardiopulmonary process. No significant change from comparison study.
[2020-11-13 19:03] VITALS: BP 107/74; TEMP 97.2
[2020-11-14 09:59] LABS: Urine Blood Trace-lysed (Negative); Urine Glucose Negative (Negative); Urine Protein Trace (Negative); Urine Specific Gravity >=1.030 (1.005-1.030)
== END 2020-11-13 18:50 | disposition home or self-care (01) ==
LOC: ER 14:27
DX: J06.9 Acute upper respiratory infection, unspecified (principal); Z20.822 Contact with and (suspected) exposure to COVID-19; I10 Essential (primary) hypertension; F17.210 Nicotine dependence, cigarettes, uncomplicated; Z88.5 Allergy status to narcotic agent
CPT/HCPCS: 85025; 80048; 36415; 81003; 71045; 96375; 96374; 99284; U0003; J2765; J1200; J7030; J2405

== ENCOUNTER 2021-08-31 20:51 | Emergency (ER) | payer OTHER ==
[2021-08-31] MEDS ORDERED: FENTANYL CITR 100 MCG/2 ML ONE (22:18)
[2021-08-31] MEDS ORDERED: NA CHLORIDE 0.9% 1,000 ML ONE (22:18)
[2021-08-31] MEDS ORDERED: ONDANSETRON 4 MG/2 ML VIAL ONE (22:18)
[2021-08-31 22:34] LABS: Absolute Lymphocytes (CBC) 1.5 K/uL (0.7-4.9); Hematocrit 39.7 % (36.0-45.0); Lymphocytes % 18.5 % (15.3-44.8); MCV 93.1 fL (80-100); MPV 10.7 fL (7.6-11.3); RBC Red Blood Cell Count 4.26 M/uL (3.86-4.86)
[2021-08-31 22:57] LABS: Albumin 4.7 g/dL (3.4-5.0); Bilirubin Total 0.2 mg/dL (0.2-1.0); Potassium 3.7 mmol/L (3.5-5.1); Protein, Total 7.5 g/dL (6.4-8.2)
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
--- NOTE | 2021-09-01 00:53 | EDPHYS ---
Physician Documentation [facility] Name: Sabina Cole Age: 41 yrs Sex: Female : 1980 Arrival Date: 08/31/2021 Time: 20:55 Bed 4 Private MD: Juan Pablo Formerly [facility], 1928–1983 ED Physician Candido France HPI: 08/31 22:02 This 41 yrs old Female presents to ER via Wheelchair with complaints of amy Pelvic Pain, Hip Injury - left side. 22:04 The patient presents with abdominal pain in the lower abdomen, in the left lower amy quadrant. Onset: The symptoms/episode began/occurred 2 hour(s) ago. The symptoms do not radiate. Associated signs and symptoms: none. The symptoms are described as crampy, sharp. Modifying factors: The symptoms are alleviated by nothing, the symptoms are aggravated by movement. Severity of pain: At its worst the pain was moderate in the emergency department the pain is unchanged. The patient has not experienced similar symptoms in the past. 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 - Social history:: Smoking status: Patient reports the use of cigarette tobacco products, smokes one pack cigarettes per day. - Family history:: not pertinent. ROS: 22:04 Constitutional: Negative for fever, chills, and weight loss, Eyes: Negative for injury, amy pain, redness, and discharge, ENT: Negative for injury, pain, and discharge, Neck: Negative for injury, pain, and swelling, Cardiovascular: Negative for chest pain, palpitations, and edema, Respiratory: Negative for shortness of breath, cough, wheezing, and pleuritic chest pain, Back: Negative for injury and pain, : Negative for injury, bleeding, discharge, and swelling, MS/Extremity: Negative for injury and deformity, Skin: Negative for injury, rash, and discoloration, Neuro: Negative for headache, weakness, numbness, tingling, and seizure, Psych: Negative for depression, anxiety, suicide ideation, homicidal ideation, and hallucinations, Allergy/Immunology: Negative for hives, rash, and allergies, Endocrine: Negative for neck swelling, polydipsia, polyuria, polyphagia, and marked weight changes, Hematologic/Lymphatic: Negative for swollen nodes, abnormal bleeding, and unusual bruising. 22:04 Abdomen/GI: Positive for abdominal pain, abdominal cramps, of the left lower quadrant. Exam: 22:04 Constitutional: This is a well developed, well nourished patient who is awake, alert, amy and in no acute distress. Head/Face: Normocephalic, atraumatic. Eyes: Pupils equal round and reactive to light, extra-ocular motions intact. Lids and lashes normal. Conjunctiva and sclera are non-icteric and not injected. Cornea within normal limits. Periorbital areas with no swelling, redness, or edema. ENT: Nares patent. No nasal discharge, no septal abnormalities noted. Tympanic membranes are normal and external auditory canals are clear. Oropharynx with no redness, swelling, or masses, exudates, or evidence of obstruction, uvula midline. Mucous membranes moist. Neck: Trachea midline, no thyromegaly or masses palpated, and no cervical lymphadenopathy. Supple, full range of motion without nuchal rigidity, or vertebral point tenderness. No Meningismus. Chest/axilla: Normal chest wall appearance and motion. Nontender with no deformity. No lesions are appreciated. Cardiovascular: Regular rate and rhythm with a normal S1 and S2. No gallops, murmurs, or rubs. Normal PMI, no JVD. No pulse deficits. Respiratory: Lungs have equal breath sounds bilaterally, clear to auscultation and percussion. No rales, rhonchi or wheezes noted. No increased work of breathing, no retractions or nasal flaring. Back: No spinal tenderness. No costovertebral tenderness. Full range of motion. Skin: Warm, dry with normal turgor. Normal color with no rashes, no lesions, and no evidence of cellulitis. MS/ Extremity: Pulses equal, no cyanosis. Neurovascular intact. Full, normal range of motion. Neuro: Awake and alert, GCS 15, oriented to person, place, time, and situation. Cranial nerves II-XII grossly intact. Motor strength 5/5 in all extremities. Sensory grossly intact. Cerebellar exam normal. Normal gait. Psych: Awake, alert, with orientation to person, place and time. Behavior, mood, and affect are within normal limits. 22:04 Abdomen/GI: Inspection: abdomen appears normal, Bowel sounds: normal, Palpation: moderate abdominal tenderness, in the left lower quadrant, Liver: no appreciated palpable abnormalities, Hernia: not appreciated. Vital Signs: 21:37 BP 108 / 70; Pulse 97; Resp 18; Temp 97.7; Pulse Ox 100% ; Weight 45.36 kg; Height 5 vc1 ft. 2 in. (157.48 cm); Pain 10/10; 23:56 BP 102 / 71; Pulse 85; Resp 17 S; Pulse Ox 99% on R/A; lg3 21:37 Body Mass Index 18.29 (45.36 kg, 157.48 cm) vc1 Luna Coma Score: 09/01 01:17 Eye Response: spontaneous(4). Verbal Response: oriented(5). Motor Response: obeys lg3 commands(6). Total: 15. Trauma Score (Adult): 01:16 Eye Response: spontaneous(1); Verbal Response: oriented(1); Motor Response: obeys lg3 commands(2); Systolic BP: > 89 mm Hg(4); Respiratory Rate: 10 to 29 per min(4); Scott Score: 15; Trauma Score: 12 MDM: 08/31 21:43 [facility] screened. [facility] 22:09 Differential diagnosis: non-specific abd pain, urinary tract infection. Data reviewed: [facility] vital signs, nurses notes, lab test result(s), radiologic studies, CT scan. Data interpreted: school bus monitor: rate is 97 beats/min, rhythm is regular, Pulse oximetry: on room air is 100 %. Counseling: I had a detailed discussion with the patient and/or guardian regarding: the historical points, exam findings, and any diagnostic results supporting the discharge/admit diagnosis, lab results, radiology results, the need for outpatient follow up, for definitive care, 08/31 22:02 Order name: CBC with Diff; Complete Time: 23:00 [facility] 08/31 22:02 Order name: CMP; Complete Time: 23:00 [facility] 08/31 22:02 Order name: Lipase; Complete Time: 23:00 [facility] 08/31 22:02 Order name: CT Abd/Pelvis - IV Contrast Only [facility] 08/31 22:02 Order name: IV Saline Lock; Complete Time: 22:18 [facility] 08/31 22:02 Order name: Labs collected and sent; Complete Time: 22:18 [facility] Administered Medications: 22:23 Drug: NS 0.9% 1000 ml Route: IV; Rate: 1 bolus; Site: left antecubital; lg3 09/01 01:18 Follow up: Response: No adverse reaction; IV Status: Completed infusion; IV Intake: lg3 1000ml 08/31 22:23 Drug: Zofran (Ondansetron) 4 mg Route: IVP; Site: left antecubital; lg3 22:23 Follow up: Response: No adverse reaction lg3 22:23 Drug: fentaNYL (PF) 50 mcg Route: IVP; Site: left antecubital; lg3 22:23 Follow up: Response: No adverse reaction lg3 22:23 Follow up: Response: No adverse reaction lg3 Disposition Summary: 09/01/21 00:52 Discharge Ordered Location: Home amy Problem: new amy Symptoms: have improved amy Condition: Stable amy Diagnosis - Contusion of abdominal wall amy - Abrasion of abdominal wall, initial encounter amy - Other gastritis amy Followup: amy - With: - When: 2 - 3 days - Reason: Recheck today's complaints, Continuance of care, Re-evaluation by your physician Followup: amy - With: Sterling Mayo MD - When: 2 - 3 days - Reason: Recheck today's complaints, Re-evaluation by your physician Discharge Instructions: - Discharge Summary Sheet amy - Abdominal Pain, Adult amy - Abrasion amy - Abdominal Pain, Adult, [id number] amy - Abrasion, [id number] amy - Gastritis, Adult amy Forms: - Medication Reconciliation Form amy - Thank You Letter amy - Antibiotic Education amy - Prescription Opioid Use [facility] Prescriptions: - Ibuprofen 600 mg Oral Tablet - take 1 tablet by ORAL route every 6 hours As needed take with food; 20 tablet; amy Refills: 0, Product Selection Permitted - Pepcid 20 mg Oral Tablet - take 1 tablet by ORAL route every 12 hours for 21 days; 42 tablet; Refills: 0, amy Product Selection Permitted Signatures: Dispatcher [employer] EDMS Román, Candido, MD MD amy Lin, Akila, RN RN lg3 Tory Oropeza RN RN vc1
[2021-09-01 01:32] VITALS: TEMP 97.7
[2021-09-01 01:34] VITALS: BP 102/71; O2SAT 99
--- NOTE | 2021-09-01 18:56 | RAD REPORT ---
EXAM DESCRIPTION: CT - Abdomen Pelvis W Contrast - 09/01/2021 7:13 am CLINICAL HISTORY: 41-year-old female with LEFT upper quadrant abdominal pain COMPARISON: None. TECHNIQUE: CT of the abdomen and pelvis was performed following intravenous administration of contra st. Oral contrast was not administered. Multiplanar reformatted images were provided. This exam was p erformed according to our departmental dose optimization program which includes use of automated expo sure control, adjustment of the mA and/or kV according to patient size and/or use of iterative recons truction technique. FINDINGS: Chest: Evaluation through the lung bases reveals no focal opacity, pleural effusion or pne umothorax. Heart size is within normal limits. No pericardial effusion. Abdomen and pelvis: Periportal lucency is identified, a nonspecific finding which can be seen with periportal edema and m ay be seen with hepatic infectious, inflammatory processes, systemic hypervolemia and other etiology. Please correlate with laboratory values. The common bile duct is top normal in size measuring up to 6 mm. Mild nonspecific prominence of the p ancreatic duct within normal limits of size measuring 2 to 3 mm. Focal fatty prominence is identified at the level of the falciform ligament. The liver, gallbladder, pancreas, spleen, bilateral kidneys and bilateral adrenal glands are otherwis e within normal limits. There is nonspecific wall thickening of the gastric antrum and duodenum raising the possibility of in fectious or inflammatory process including peptic ulcer disease in the correct clinical setting. The vessels are patent and normal in caliber. No abdominopelvic lymph nodes are noted to be pathologically enlarged by CT measurement criteria. The bowel is within normal limits without abnormal bowel wall thickness or bowel dilation. No free air. No free abdominopelvic fluid collections. The appendix is within normal limits. The osseous structures are within normal limits. IMPRESSION: 1. No specific acute intra-abdominal findings are noted to suggest etiology of the pat ient's abdominal pain. 2. Periportal lucency is identified, a nonspecific finding which can be seen with periportal edema and may be seen with hepatic infectious, inflammatory processes, systemic hypervolemia and other etio logy. Please correlate with laboratory values. 3. Nonspecific wall thickening of the gastric antrum and duodenum raising the possibility of infect ious or inflammatory process including peptic ulcer disease in the correct clinical setting. Electronically signed by: Norah Carrillo MD 09/01/2021 12:39 AM CDT Due to temporary technical issues with the PACS/Fluency reporting system, reports are being signed by the in house radiologists without review as a courtesy to insure prompt reporting. The interpreting radiologist is fully responsible for the content of the report.
== END 2021-09-01 01:18 | disposition home or self-care (01) ==
LOC: ER 20:51
DX: S30.811A Abrasion of abdominal wall, initial encounter (principal); S30.1XXA Contusion of abdominal wall, initial encounter; K29.60 Other gastritis without bleeding; F17.210 Nicotine dependence, cigarettes, uncomplicated; I10 Essential (primary) hypertension; F31.9 Bipolar disorder, unspecified; J44.9 Chronic obstructive pulmonary disease, unspecified; Z88.5 Allergy status to narcotic agent; Z88.8 Allergy status to other drugs, medicaments and biological substances
CPT/HCPCS: 96361; 85025; 36415; 83690; 80053; 74177; 96375; 96374; 99284; Q9967; J3010; J7030; J2405

== ENCOUNTER 2023-07-14 14:24 | Emergency (ER) | payer OTHER ==
[2023-07-14 14:50] LABS: Absolute Lymphocytes (CBC) 0.1 K/uL (0.7-4.9); Absolute Monocytes 0.2 K/uL (0.1-1.3); Absolute Neutrophil 2.3 K/uL (1.8-8.0); Basophils % 0.6 % (0-1.3); Eosinophils % 1.2 % (0-4.4); Hematocrit 32.4 % (36.0-45.0); Lymphocytes % 4.4 % (15.3-44.8); MCH 31.6 pg (27.0-35.0); MCHC 34.1 g/dL (32.0-36.0); MCV 92.7 fL (80-100); MPV 10.5 fL (7.6-11.3); Monocytes % 7.7 % (3.3-12.3); Neutrophils % 86.1 % (41.7-73.7); Nucleated Red Blood Cells % 0.1 % (0-0); Platelets 72 thou/uL (152-406); RBC Red Blood Cell Count 3.49 M/uL (3.86-4.86); Red Cell Distribution Width 12.9 % (12.1-15.2)
[2023-07-14 15:08] LABS: Troponin High Sensitivity 3.6 pg/mL (<58.9)
--- NOTE | 2023-07-14 15:23 | RAD REPORT ---
EXAM DESCRIPTION: RAD - Chest Single View - 07/14/2023 3:14 pm CLINICAL HISTORY: CHEST PAIN COMPARISON: Chest Single View dated 11/13/2020; Chest Single View dated 07/02/2019 FINDINGS: Lines: None. Lungs: No evidence of edema or pneumonia. Pleural: No significant pleural effusions or pneumothorax. Cardiac: The heart size is within normal limits. Mediastinum: Within normal limits. Bones: No acute fractures. Other: None IMPRESSION: No acute cardiopulmonary disease.
[2023-07-14] MEDS ORDERED: POTASSIUM 25 MEQ EFFERV TAB ONE (15:46)
[2023-07-14] MEDS ORDERED: CALCIUM GLUCONATE 1 GM IVPB 2 GM/100 ML BAG IV ONE (15:47)
--- NOTE | 2023-07-14 16:25 | EDPHYS ---
Physician Documentation [facility] Name: Sabina Cole Age: 43 yrs Sex: Female : 1980 Arrival Date: 07/14/2023 Time: 14:24 Bed 8 Private MD: ED Physician Rupert Loving HPI: 07/13 16:17 This 43 yrs old Female presents to ER via EMS with complaints of Nausea, Doesn't Feel ms3 Right. 16:17 43-year-old female with past medical history of bipolar disorder, COPD, endometriosis, ms3 hypertension presents to the emergency department for headache developed yesterday and chest pain and nausea that began today. Patient states she took a home COVID test that was positive today. She states her temperature has been up to 102. EMS administered 1 g of Tylenol and 4 mg of Zofran. Vital signs for EMS were initial heart rate of 120 decreasing to 110, blood pressure 130/70. Patient states her discomfort is a 10/10 and movement makes the discomfort worse. Historical: - Allergies: 15:44 Codeine; ko1 15:44 Reglan; ko1 - PMHx: 15:44 Bipolar disorder; COPD; Endometrosis; Hypertension; ko1 - Immunization history:: Client reports receiving the 2nd dose of the Covid vaccine, Client reports receiving the 1st dose of the Covid vaccine. - Infectious Disease History:: Denies. - Social history:: Smoking status: Patient denies any tobacco usage or history of. ROS: 16:17 Constitutional: Negative for fever, and chills. Neck: Negative for injury, pain, and ms3 swelling, 16:17 Cardiovascular: Positive for chest pain, 16:17 Abdomen/GI: Positive for nausea, Exam: 16:14 ECG was reviewed by the Attending Physician. ms3 16:17 Constitutional: This is a well developed, well nourished patient who is awake, alert, ms3 and in no acute distress. Head/Face: Normocephalic, atraumatic. Neck: Trachea midline, no cervical lymphadenopathy. Supple, full range of motion without nuchal rigidity, or vertebral point tenderness. No Meningismus. Chest/axilla: Normal chest wall appearance and motion. Nontender with no deformity. 16:17 Abdomen/GI: Soft, non-tender, with normal bowel sounds. No distension or tympany. No guarding or rebound. No evidence of tenderness throughout. Skin: Warm, dry with normal turgor. Normal color with no rashes, no lesions, and no evidence of cellulitis. MS/ Extremity: Pulses equal, no cyanosis. Neurovascular intact. Full, normal range of motion. 16:17 Cardiovascular: Rate: tachycardic, Rhythm: regular, Pulses: no pulse deficits are appreciated, Heart sounds: normal, Edema: is not appreciated, Vital Signs: 14:30 BP 120 / 80; Pulse 96; Resp 16; Temp 99.4(O); Pulse Ox 97% ; ko1 15:38 BP 112 / 67; Pulse 87; Resp 18; Pulse Ox 97% ; ko1 16:30 BP 118 / 72; Pulse 88; Resp 16; Pulse Ox 99% ; ko1 MDM: 14:28 Patient medically screened. ms3 16:17 Differential diagnosis: Nonspecific abd pain, gastritis, viral gastroenteritis. ms3 18:21 Data reviewed: vital signs, nurses notes, and as a result, I will discharge patient. I ms3 considered the following discharge prescriptions or medication management in the emergency department Medications were administered in the Emergency Department. See MAR. 18:21 Independent interpretation of the following test(s) in the Emergency Department EKG: ms3 See my EKG interpretation above. Care significantly affected by the following chronic conditions: Hypertension. Counseling: I had a detailed discussion with the patient and/or guardian regarding the historical points, exam findings, and any diagnostic results supporting the discharge/admit diagnosis, lab results, radiology results, the need for outpatient follow up, to return to the emergency department if symptoms worsen or persist or if there are any questions or concerns that arise at home. Special discussion: Based on the patient's history, exam, and Dx evaluation, there is no indication for emergent intervention or inpatient Tx. It is understood by the patient/guardian that if the Sx's persist or worsen they need to return immediately for re-evaluation. ED course: Discussed labs, imaging, EKG with patient. Patient to follow-up with primary care physician in 2 to 3 days. Patient understands and agrees with plan. All questions were answered. Return precautions discussed include worsening symptoms, or any other concerns. 07/13 14:28 Order name: Basic Metabolic Panel; Complete Time: 15:24 ms3 07/13 14:28 Order name: CBC with Diff ms3 07/13 14:28 Order name: Troponin HS; Complete Time: 15:24 ms3 07/13 14:28 Order name: XRAY Chest (1 view); Complete Time: 15:24 ms3 07/13 14:28 Order name: Cardiac monitoring; Complete Time: 14:39 ms3 07/13 14:28 Order name: EKG - Nurse/Tech; Complete Time: 14:46 ms3 07/13 14:28 Order name: IV Saline Lock; Complete Time: 14:39 ms3 07/13 14:28 Order name: Labs collected and sent; Complete Time: 14:46 ms3 07/13 14:28 Order name: O2 Per Protocol; Complete Time: 14:38 ms3 07/13 14:28 Order name: O2 Sat Monitoring; Complete Time: 14:38 ms3 EC:14 Rate is 91 beats/min. Rhythm is regular. QRS [place] is Normal. [place] interval is normal. QRS ms3 interval is normal. Clinical impression: Normal ECG. Interpreted by me. Reviewed by me. Administered Medications: 15:56 Drug: Potassium PO Effervescent Tablet 50 mEq PO once; dissolve in 4 ounces of water or ld1 juice Route: PO; 16:26 Follow up: Response: No adverse reaction ko1 15:56 Drug: Calcium Gluconate IVPB 2 grams IVPB once over 60 mins; (mix in NS 100 mL) Route: ld1 IVPB; Infused Over: 60 mins; Site: right antecubital; 15:56 Drug: Droperidol IVP 1.25 mg IVP once Route: IVP; Site: right antecubital; ld1 16:10 Follow up: Response: No adverse reaction; Nausea is decreased ko1 Disposition: 18:27 Chart complete. ms3 Disposition Summary: 07/14/23 16:24 Discharge Ordered Notes: Location: Home ms3 Condition: Stable ms3 Diagnosis - Headache ms3 - Myalgia ms3 - Nausea ms3 Followup: ms3 - With: Law Almeida, DO - When: 2 - 3 days - Reason: Recheck today's complaints Discharge Instructions: - Discharge Summary Sheet ms3 - General Headache Without Cause ms3 - Musculoskeletal Pain ms3 Forms: - Medication Reconciliation Form ms3 - Antibiotic Education ms3 - Prescription Opioid Use ms3 - Patient Portal Instructions ms3 - Leadership Thank You Letter ms3 Signatures: Dispatcher [employer] EDMS Rupert Loving, DO DO ms3 Johana Loving, RN RN ld1 Swati Morris, RN RN ko1 Corrections: (The following items were deleted from the chart) 14: 14:28 BASIC METABOLIC PANEL+C.LAB.BRZ ordered. EDMS EDMS 14: CBC+H.LAB.BRZ ordered. EDMS EDMS 14: Troponin High Sensitivity+C.LAB.BRZ ordered. EDMS EDMS 14: Chest Single View+RAD.RAD.BRZ ordered. EDMS EDMS
--- NOTE | 2023-07-14 16:25 | ER ---
Nurse's Notes [facility] Name: Sabina Cole Age: 43 yrs Sex: Female : 1980 Arrival Date: 07/14/2023 Time: 14:24 Bed 8 Private MD: Diagnosis: Headache;Myalgia;Nausea Presentation: 07/13 14:30 Chief complaint: EMS states: patient not feeling well since yesterday, home covid test ko1 was positive. Coronavirus screen: fatigue, fever, headache, muscle pain, Client presents with at least one sign or symptom that may indicate coronavirus-19. Standard/surgical mask placed on the client. Client reports previous positive COVID test result. Date of collection: July 14, 2023 home test. Ebola Screen: No symptoms or risks identified at this time. Initial Sepsis Screen: Does the patient meet any 2 criteria? No. Patient's initial sepsis screen is negative. Does the patient have a suspected source of infection? No. Patient's initial sepsis screen is negative. Risk Assessment: Do you want to hurt yourself or someone else? Patient reports no desire to harm self or others. Onset of symptoms was July 13, 2023. Care prior to arrival: Medication(s) given: Normal saline infusion, 1000 mL, IV initiated. 20 GA, in the right antecubital area. 14:30 Method Of Arrival: EMS: [facility] ko1 14:30 Acuity: HELENA 3 ko1 Triage Assessment: 14:30 General: Appears in no apparent distress. uncomfortable, ill, slender, Behavior is ko1 cooperative, appropriate for age. Pain: Complains of pain in neck, head, back. EENT: No deficits noted. Neuro: No deficits noted. Cardiovascular: Reports chest pain. Respiratory: No deficits noted. GI: No deficits noted. : No deficits noted. Derm: No deficits noted. Musculoskeletal: No deficits noted. Historical: - Allergies: 15:44 Codeine; ko1 15:44 Reglan; ko1 - PMHx: 15:44 Bipolar disorder; COPD; Endometrosis; Hypertension; ko1 - Immunization history:: Client reports receiving the 2nd dose of the Covid vaccine, Client reports receiving the 1st dose of the Covid vaccine. - Infectious Disease History:: Denies. - Social history:: Smoking status: Patient denies any tobacco usage or history of. Screenin:38 [facility] ED Fall Risk Assessment (Adult) History of falling in the last 3 months, ko1 including since admission No falls in past 3 months (0 pts) Confusion or Disorientation No (0 pts) Intoxicated or Sedated No (0 pts) Impaired Gait No (0 pts) Mobility Assist Device Used No (0 pt) Altered Elimination No (0 pt) Score/Fall Risk Level 0 - 2 = Low Risk Oriented to surroundings, Maintained a safe environment, Educated pt \T\ family on fall prevention, incl call for assistance when getting out of bed, Assessed \T\ reinforced patient's understanding of fall precautions, Provided non-skid footwear, Hourly rounding (assess needs \T\ fall precautionary measures) done, Used ambulatory aids as needed (educated on \T\ assisted with), Used gait belt as appropriate. Abuse screen: Denies threats or abuse. Denies injuries from another. Nutritional screening: No deficits noted. Tuberculosis screening: No symptoms or risk factors identified. Assessment: 15:52 Reassessment: Patient appears in no apparent distress at this time. No changes from ko1 previously documented assessment. Patient and/or family updated on plan of care and expected duration. Pain level reassessed. Patient is alert, oriented x 3, equal unlabored respirations, skin warm/dry/pink. Vital Signs: 14:30 BP 120 / 80; Pulse 96; Resp 16; Temp 99.4(O); Pulse Ox 97% ; ko1 15:38 BP 112 / 67; Pulse 87; Resp 18; Pulse Ox 97% ; ko1 16:30 BP 118 / 72; Pulse 88; Resp 16; Pulse Ox 99% ; ko1 ED Course: 11:45 Initial lab(s) drawn, by me, sent to lab. EKG done, by ED staff, reviewed by Rupert Loving DO. Maintain EMS IV. Dressing intact. Good blood return noted. Site clean \T\ dry. Gauge \T\ site: 20 right AC. 14:26 Patient arrived in ED. ko1 14:28 Rupert Loving DO is Attending Physician. ms3 14:30 Arm band placed on right wrist. Patient placed in an exam room, on a stretcher, on ko1 monitor car operator, on pulse oximetry, Patient notified of wait time. 14:34 Arturo, Swati, RN is Primary Nurse. ko1 14:46 Troponin HS Sent. ko1 14:46 CBC with Diff Sent. ko1 14:46 Basic Metabolic Panel Sent. ko1 15:15 XRAY Chest (1 view) In Process Unspecified. EDMS 15:38 No provider procedures requiring assistance completed. ko1 15:38 Patient has correct armband on for positive identification. Allergy band placed. Bed in ko1 low position. Call light in reach. Side rails up X 1. Provided Education on: na. Client placed on continuous cardiac and pulse oximetry monitoring. NIBP monitoring applied. lunchroom monitor on. Door closed. Noise minimized. Lights dimmed. Pillow given. Assisted to bathroom. 15:44 Triage completed. ko1 16:24 Law Almeida DO is Referral Physician. ms3 16:30 IV discontinued, intact, bleeding controlled, No redness/swelling at site. Pressure ko1 dressing applied. Administered Medications: 15:56 Drug: Potassium PO Effervescent Tablet 50 mEq PO once; dissolve in 4 ounces of water or ld1 juice Route: PO; 16:26 Follow up: Response: No adverse reaction ko1 15:56 Drug: Calcium Gluconate IVPB 2 grams IVPB once over 60 mins; (mix in NS 100 mL) Route: ld1 IVPB; Infused Over: 60 mins; Site: right antecubital; 15:56 Drug: Droperidol IVP 1.25 mg IVP once Route: IVP; Site: right antecubital; ld1 16:10 Follow up: Response: No adverse reaction; Nausea is decreased ko1 Medication: 15:38 VIS not applicable for this client. ko1 Outcome: 16:24 Discharge ordered by . ms3 16:30 Discharged to home ambulatory, ko1 16:30 Condition: stable 16:30 Discharge instructions given to patient, Instructed on discharge instructions, follow up and referral plans. Demonstrated understanding of instructions, follow-up care, 16:31 Patient left the ED. ko1 Signatures: Dispatcher [employer] EDMS Rupert Loving DO DO ms3 Johana Loving RN RN ld1 Swati Morris, RN RN ko1 Corrections: (The following items were deleted from the chart) 15:54 15:38 BP 112 / 67; ld1 ko1
[2023-07-14 16:43] VITALS: BP 118/72; TEMP 99.4; O2SAT 99
[2023-07-14 17:28] LABS: Blood Morphology Comment NOT SEEN (NOT SEEN); Platelet Estimate DECR; White Blood Cell Scan OK (OK)
--- NOTE | 2023-07-15 11:01 | EKG ---
Test Date: 2023-07-14 Test Time: 14:47:17 Running Rigger: Lucinda QUEEN MEASUREMENT RESULTS: Intervals: Rate: 91 TN: 114 QRSD: 84 QT: 360 QTc: 442 [place]: P: 77 TN: 114 QRS: 81 T: 33 INTERPRETIVE STATEMENTS: Normal sinus rhythm Normal ECG Compared to ECG 07/02/2019 18:47:15 Sinus tachycardia no longer present Electronically Signed On 07-15-23 10:59:25 CDT by Michael Roa
== END 2023-07-14 16:31 | disposition home or self-care (01) ==
LOC: ER 14:24
DX: R51.9 Headache, unspecified (principal); M79.10 Myalgia, unspecified site; R11.0 Nausea; Z88.5 Allergy status to narcotic agent; Z88.8 Allergy status to other drugs, medicaments and biological substances
CPT/HCPCS: 93005; 85025; 80048; 36415; 84484; 71045; 96375; 96374; 99285; J0612